=== PATIENT | male | born 1980 | race Caucasian/White ===

== ENCOUNTER 2019-11-30 16:36 | Emergency (ER) | payer BC, SELFPAY ==
[2019-11-30 16:50] VITALS: BMI 28.1
--- NOTE | 2019-11-30 16:50 | XR_ITS ---
PROCEDURE: XR TIBIA FIBULA LT 2V CLINICAL INDICATION: INJURY Posttraumatic pain COMPARISON: CR XR ANKLE LT MIN 3V from 11/30/2019 FINDINGS: There is an oblique nondisplaced fracture involving the distal shaft of the fibula. The fracture exits medially 2 cm above the ankle joint space. The ankle mortise appears preserved. No other significant anomalies are evident. IMPRESSION: Nondisplaced oblique fracture distal shaft of the fibula Dictated by: Navdeep Sparks MD 11/30/2019 20:30 Navdeep Sparks MD in [place] 11/30/2019 20:30
[2019-11-30 17:00] VITALS: BP 140/83; PULSE 90; RESP 22; TEMP 36.7; O2SAT 95; BMI 28.1
--- NOTE | 2019-11-30 17:05 | HMH.EDUTC ---
[facility] [place] Clinical Impression: Fracture, fibula Qualifiers: Encounter type: initial encounter Fibula location: shaft Fracture type: closed Fracture morphology: spiral Fracture alignment: nondisplaced Laterality: left Qualified Code(s): S82.445A - Nondisplaced spiral fracture of shaft of left fibula, initial encounter for closed fracture Disposition: Home, Self-Care Condition on Discharge: Good Instructions: How to Use Crutches, How To Perform RICE (Rest, Ice, Compress, Elevate), Fibula Shaft Fracture Additional Instructions: *RICE, Rest the extremity, Ice 15-20 minutes 3-4 times daily, Compress- wear the douglas wrap as discussed as much as possible to help reduce swelling and pain, Elevate the extremity when at rest *Douglas wrap/Orthoglass splint is for support and help control swelling, Be sure that is not to tight but not to loose either *Elevate when resting *Ibuprofen every 6-8 hours as needed for pain an inflammation. If need something more can take Tylenol in between doses of Ibuprofen to help Immediately follow up with your family doctor for new or worsening of symptoms, or no noticeable improvement over the next 3-5 days Call [facility]opedic [facility] on Monday for appointment Return if needed Straight to ER if any life threatening symptoms Referrals: PCP,No [Primary Care Provider] - Felicia Piedra MD [Physician] - As needed (Call on Monday for appointment) Time of Disposition: 17:30 Medical Decision Making - Erickson Inquiry Pt receiving controlled substance: No Erickson was queried for this patient: No Vital Signs: 11/30/19 17:00 Temperature 98.0 F Temperature Source Oral Pulse Rate [Right Brachial] 90 Respiratory Rate 22 Blood Pressure [Right Arm] 140/83 Blood Pressure Mean [Right Arm] 102 Blood Pressure Source [Right Arm] Automatic Cuff Blood Pressure Position [Right Arm] Sitting 02 Sat by Pulse Oximetry 95 Oxygen Delivery Method Room Air Orders (Tests/Meds): ORDERS Category Date Time Status Ankle XR - Left minimum 3 Views [XR ankle LT min 3V] Exams 11/30/19 16:50 Taken Stat XR tibia fibula LT 2V Stat Exams 11/30/19 16:50 Taken - Radiology Data #1 Image(s): Ankle Image Reviewed: Yes I reviewed the patient's radiology image Spiral fracture to the distal fib #2 Image(s): Tib/Fib Image Reviewed: Yes I reviewed the patient's radiology image Spiral fracture of left fib - Physician Consults Physician Consulted: Time: 17:15 Reason -: Orthopedic Eval/Care Comment/Response: Spoke with Dr Arevalo and he viewed xray and agreed, advised to place patient in posterior splint well padded RICE, crutches and call office on Monday for appointment [facility] [place] - General Stated complaint: AO 0905 1200 injured L ankle Time Seen by Provider: 11/30/19 17:05 Mode of Arrival: Ambulatory Source of Information: Patient Limitations: No Limitations Description of Symptoms (Recalled from Triage Doc. by RN): PATIENT STATES HE WAS ROLLERSKATING WHEN HE FELL, ROLLED HIS ANKLE, AND FELL ON IT TODAY HEENT Symptoms (Recalled from RN notes): No Resp Symptoms (Recalled from RN notes): No Skin Symptoms (Recalled from RN notes): No MS Symptoms (Recalled from RN notes): Yes Functional Status (Recalled from RN notes): WNL - History of Present Illness Provider Complaint: Patient states that he was trying to show his kids how to skate on skate board when he slipped and fell State that his left ankle rolled and he felt his leg twist and rolled on the ground Ever since he has been having pain in his left lower leg area just above the ankle - Related Data Home Medications Medication Instructions Recorded Confirmed citalopram 40 mg tablet 40 mg PO ONCE 06/08/17 11/30/19 lamotrigine 200 mg tablet 200 mg PO ONCE tab 06/08/17 11/30/19 buPROPion HCL [Wellbutrin SR 150mg 150 mg PO BID 11/30/19 11/30/19 Tablet] Allergies Allergy/AdvReac Type Severity Reaction Status Date / Time naproxen [
[2019-11-30 18:03] VITALS: BP 140/83; PULSE 90; RESP 22; TEMP 36.7; O2SAT 95
== END 2019-11-30 18:10 | disposition home or self-care (01) ==
PROVIDERS: Emergency Provider Nurse Practitioner
DX: S82.445A Nondisplaced spiral fracture of shaft of left fibula, initial encounter for closed fracture (principal); V00.131A Fall from skateboard, initial encounter; Y92.014 Private driveway to single-family (private) house as the place of occurrence of the external cause; F41.8 Other specified anxiety disorders; Z79.899 Other long term (current) drug therapy; F17.210 Nicotine dependence, cigarettes, uncomplicated; Z87.442 Personal history of urinary calculi; Z90.49 Acquired absence of other specified parts of digestive tract
CPT/HCPCS: 29515; 73590; 73610; 99203

== ENCOUNTER 2019-12-03 10:50 | Outpatient (RCR) | payer BC, SELFPAY | END 2019-12-03 11:10 | disposition home or self-care (01) | LOC: PT 10:50 | PROVIDERS: Visit Provider Orthopaedic Surgery | DX: S82.892A Other fracture of left lower leg, initial encounter for closed fracture (principal) | CPT/HCPCS: 97760 ==

== ENCOUNTER → 2019-12-12 13:07 | Outpatient (CLI) | payer BC, SELFPAY ==
--- NOTE | 2019-12-12 13:30 | XR_ITS ---
PROCEDURE: XR TIBIA FIBULA LT 2V CLINICAL INDICATION: fibula fx Follow-up fracture COMPARISON: CR XR TIBIA FIBULA LT 2V from 11/30/2019 FINDINGS: Nondisplaced oblique fracture involves the distal shaft of the fibula at the distal diaphyseal region proximal to the level of the ankle joint. Fracture line is visible and not significantly changed. IMPRESSION: No change nondisplaced oblique fracture distal shaft of the fibula Dictated by: Navdeep Sparks MD 12/12/2019 15:17 Navdeep Sparks MD in [place] 12/12/2019 15:17
[2019-12-12 13:41] LABS: Basophils % 0.2 % (0.1-2.0); Eosinophils % 0.2 % (0.1-12.0); Hematocrit 46.9 % (42.0-52.0); Hemoglobin 16.6 g/dL (14.1-18.0); Lymphocytes # 2.1 K/mm3 (0.7-4.5); Lymphocytes % 30.3 % (10-50); Mean Corpuscular HGB Conc 35.4 g/dL (31.8-35.4); Mean Corpuscular Hemoglobin 31.4 pg (27.0-31.2); Mean Corpuscular Volume 88.7 fl (80-94); Mean Platelet Volume 7.7 fl (7.4-10.4); Monocytes # 0.4 K/mm3 (0.1-1.0); Monocytes % 5.2 % (1.7-9.3); Neutrophils # 4.3 K/mm3 (1.8-7.8); Neutrophils % 64.1 % (37.0-80.0); Platelet Count 236 K/mm3 (142-424); Red Blood Count 5.29 M/mm3 (4.60-6.20); Red Cell Distribution Width 13.3 % (11.5-17.5); White Blood Count 6.8 K/mm3 (4.8-10.8)
[2019-12-12 15:04] LABS: Chloride 101 mmol/L (98-107); Potassium 4.1 mmoL/L (3.5-5.1); Sodium 139 mmol/L (136-145)
[2019-12-12 15:07] LABS: Alanine Aminotransferase 36 U/L (12-78); Albumin Level 4.4 g/dl (3.5-5.0); Albumin/Globulin Ratio 1.5 (1.1-1.8); Alkaline Phosphatase 87 U/L (38-126); Anion Gap 16.1 mEq/L (5-15); Aspartate Amino Transferase 31 U/L (17-59); Bilirubin,Total 1.1 mg/dl (0.2-1.3); Blood Urea Nitrogen 12 mg/dl (9-20); Calcium 9.8 mg/dl (8.4-10.2); Carbon Dioxide 26 mmol/L (22.0-30.0); Estimated Glomerular Filt Rate 67 ml/min (>60); GFR (African American) 81 ML/MIN (>60); Globulin 2.9 g/dL (1.3-3.2); Glucose 127 mg/dl (74-100); Total Protein,Serum 7.3 g/dl (6.3-8.2)
[2019-12-12 15:20] LABS: T4 (Thyroxine) 7.6 ug/dl (5.53-11.0)
[2019-12-12 15:35] LABS: Thyroid Stimulating Hormone 0.66 uIU/mL (0.465-4.68)
[2019-12-12 18:50] LABS: Vitamin B12 334 pg/mL (239-931)
[2019-12-12 18:51] LABS: Folate 5.62 ng/mL
== END ==
LOC: LAB 13:08 → RAD 13:25
PROVIDERS: Visit Provider Orthopaedic Surgery
DX: S82.892A Other fracture of left lower leg, initial encounter for closed fracture (principal)
CPT/HCPCS: 36415; 73590; 80053; 82306; 82607; 82746; 84436; 84443; 85025

== ENCOUNTER → 2019-12-16 11:01 | Outpatient (CLI) | payer BC, SELFPAY ==
[2019-12-16 12:12] LABS: Hemoglobin A1C 5.3 % (4.0-6.0)
[2019-12-16 17:47] LABS: Coronavirus 19 IgG Antibody Negative (Negative); Coronavirus 19 IgM Antibody Negative (Negative)
== END ==
PROVIDERS: Visit Provider Orthopaedic Surgery
DX: Z01.818 Encounter for other preprocedural examination (principal)
CPT/HCPCS: 36415; 83036; 86328

== ENCOUNTER 2019-12-17 10:43 | Day surgery (SDC) | payer BC, SELFPAY ==
[2019-12-13 15:20] VITALS: BMI 27.3
[2019-12-17] VITALS (12 sets, daily range): BP systolic 122–150; BP diastolic 63–112; PULSE 60–79; RESP 12–19; TEMP 36.2–43; O2SAT 96–98
--- NOTE | 2019-12-17 15:21 | XR_ITS ---
PROCEDURE: XR ANKLE LT 2V CLINICAL INDICATION: ORIF OF LT ANKLE COMPARISON: No exams were available for comparison FINDINGS: Fluoroscopy time: 2 minutes Multiple images submitted with the C-arm showing interval ORIF of the distal fibular fracture with placement of a lateral bone plate and multiple cortical screws with good alignment. 2 translucent fixators are such that placed in the distal tib fib region. The ankle mortise is preserved IMPRESSION: Status post ORIF distal fibular fracture with syndesmotic repair with good alignment Dictated by: Navdeep Sparks MD 12/17/2019 19:07 Navdeep Sparks MD in [place] 12/17/2019 19:07
--- NOTE | 2019-12-17 15:34 | HMH.OPNOTE ---
Date of procedure: 12/17/19 Pre-op Diagnosis:: L ankle fracture (distal fibula fracture; bimalleolar equivalent) Post-op Diagnosis:: L ankle fracture (distal fibula fracture; bimalleolar equivalent) Procedure performed:: open reduction internal fixation (ORIF) L ankle fracture (ORIF distal fibula with syndesmotic tightrope fixation) Surgeon:: Felicia Piedra MD Child Care Teacher(s):: Norman Topete MD GEOTHERMAL OPERATIONS ENGINEER:: Sergio Saldana Anesthesia: GETA, regional (popliteal block) Estimated blood loss (mL): 25 Clinical Note:: 39-year-old gentleman s/p injury on 11/30/2019 in which he fell 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 He twisted his ankle in the process and had immediate pain with inability to bear weight on the left leg, so presented to the [facility] [place] at [facility]. He was told there was a fracture in his ankle and placed into a splint. He saw me for follow-up 3 days later, but was too swollen to pursue surgical intervention at that time. He reports no numbness or tingling in the toes. No open wounds over the left ankle or foot. There is some mild bruising present. He has never injured this ankle previously, nor has he had any surgery on this foot or ankle. He is a smoker, denies any underlying medical comorbidities; BMI 28. Based on the significant medial-sided tenderness and what I believed what slight medial clear space widening, I recommended surgical fixation, especially given the patient's young age and high activity level. I discussed the risks of surgery with the patient, including but not limited to: bleeding, infection, wound healing complications, non-union, malunion, persistent pain despite surgery, post-traumatic arthritis, painful hardware, and need for further surgery in the future. I also emphasized his increased risk for adverse event or suboptimal healing/outcome given his status as a smoker, and I strongly encouraged smoking cessation. The patient does not report smoking often, mostly while drinking socially, and he can cut back after surgery. The patient was in agreement the plan for surgery, vocalized understanding of the risks of the procedure, and provided informed consent. Operative findings:: Vendor: Vatler -- fully-threaded cortical screws, 2.7mm x2 (interfragmentary fixation) -- lateral distal fibula plate, 11-hole left-sided plate -- 3.5mm screws in plate x7; 4 locking, 3 non-locking -- Synchfix syndesmosis tightrope x2 Operative note:: The patient was identified in preoperative holding and the L ankle signed by myself. Surgical consent was verified with the patient and all questions answered. He was then seen by anesthesia and popliteal nerve block performed in preoperative holding. The patient was then taken to the operating room and placed supine on the OR table. 2g cefazolin was infused intravenously and general anesthesia induced. Once the patient was asleep, the splint was removed from the L ankle and soft tissues appeared amenable to fixation. Some ecchymosis remained laterally on the heel, but no blistering or open wounds present. Nonsterile tourniquet was placed on the L thigh and the L lower leg and ankle were prepped and draped in the usual sterile fashion with the lower leg supported on a radiolucent bolster (bone foam). Timeout was performed, identifying the correct patient, correct procedure, and correct site. The procedure was begun by using the Esmarch to exsanguinate the L lower extremity and elevating the tourniquet to 250 mmHg. C-arm was used to localize the fracture site over the distal fibula. Longitudinal incision was made over the lateral aspect of the ankle, centered over the fibula and extending from the tip of the fibula to around 8 cm proximally. After the skin was incised, subcutaneous tissue was spread bluntly with Metzenbaum scissors until muscle/fascial layer encountered. A new, inside knife was used to cut down directly onto the fibula and periosteum was lifted anteriorl
--- NOTE | 2019-12-17 15:56 | P.PN_ITS ---
[facility] Anesthesia Checklist - Patient Identification Patient Identification: Arm Band, Verbal (Name & ) - Structural Data Admitted From: Home Planned Operative Procedure/s: Left ankle ORIF Consent for Planned Operative Procedure(s) Verified: Yes Verified Documents: Surgical Consent, History and Physical - NPO Status Verified Time NPO: 22:00 - Chart Verification Results Verified: CBC, BMP - Additional verifications Anesthesia Reactions: Yes (PONV) Hx Blood Transfusions: No Blood Transfusion Reaction: No - Airway Assessment C-Spine Mobility Assessed: Yes (Facial hair, MP 2, TMD 3) TMJ Mobility Assessed: Yes Dentition: Good Dentition - Neurological Assessment Level of Consciousness: Awake, Alert, Appropriate, Follows Commands Hx Seizures: No Numbness or tingling in extremities: No - Anesthesia Plan Anesthesia Risk discussed: Yes Anesthesia Plan: Verified ASA Class: II Anesthesia Type: General w/block [facility] History I have reviewed the patient's past medical history: Yes Medical History: Reports:: Anxiety, Depression, Kidney Stones Denies:: Cancer, Diabetes Mellitus Type 1, Diabetes Mellitus Type 2, Hypertension, Internal Pacemaker, MRSA, Seizures *Have you ever received a pneumonia vaccine?: No *Have you received a flu vaccine this season?: No Other Medical History: Reports: Other. Denies: Blood Transfusion Reaction Anesthesia experience/problems:: PONV Other Surgeries: Yes: Cholecystectomy, Hernia Repair, Other. No: Pacemaker Amputation: No Fractures: No - *Social History Tobacco Type: smokeless tobacco # Packs/Day (cigarettes): 1 Alcohol Intake Frequency:: 0-2 drinks per day Substance Use Type: denies use *Occupational Status:: other Housing: house Household Members: family *Travel in the last 8 weeks: None Family Hx:: No significant family history
--- NOTE | 2019-12-17 15:58 | P.PN_ITS ---
[facility] [place] Anesthesia Record Part I Intake, IV Amount: 1,300 Estimated blood loss (mL): 25 Urine output (mL): 0 (NM) Blood Products used (#): none Blood Pressure: 146/112 SaO2: 96 Pulse Rate: 79 Respiratory Rate: 19 Temperature: 97.2 F Patient is:: Awake, Stable Stable to PACU at:: 15:50
--- NOTE | 2019-12-17 18:15 | HMH.ANESII ---
[facility] [place] Anesthesia Record Part II Discharge Time: 16:31 Destination: Surgical Day Care (OP Surgery) PACU nurse assessment reviewed?: Yes Patient Condition:: Good Anesthesia Complications:: None Swallowing reflex intact?: Yes Cyanosis?: No Blood Pressure: 122/63 Pulse Rate: 67 Temperature: 97.5 F Mental Status: Alert & Oriented Pain level:: 0 Nausea and/or vomitting:: None Intake, IV Amount: 0 (Normovolemic)
== END 2019-12-17 17:04 | disposition home or self-care (01) ==
LOC: OR 10:44
PROVIDERS: Visit Provider Orthopaedic Surgery
PROC: (CPT 27814; principal; 2019-12-17 12:30)
DX: S82.842A Displaced bimalleolar fracture of left lower leg, initial encounter for closed fracture (principal); V00.131A Fall from skateboard, initial encounter
CPT/HCPCS: 27814; 73600; 76000; 96374; C1713; C1776; J2405

== ENCOUNTER → 2019-12-26 12:26 | Outpatient (CLI) | payer BC, SELFPAY ==
--- NOTE | 2019-12-26 12:31 | XR_ITS ---
PROCEDURE: XR ANKLE LT MIN 3V Referring Doctor: Felicia Piedra Patient Age:39Y CLINICAL INDICATION: s/p ORIF left ankle; out of splint; NWB COMPARISON: CR XR TIBIA FIBULA LT 2V from 12/12/2019 XA XR ANKLE LT 2V from 12/17/2019 FINDINGS: There has been ORIF of the fracture involving oblique distal shaft of fibula. On today's study there is a long metallic plate applied to the lateral aspect of the distal fibula shaft which continues to the lateral malleolus. It is secured by multiple screws at least 7 screws but a 2 screws enter slightly different oblique projection to secure the fracture as well but A 2 faint horizontal tracks are seen through the distal tibia and fibula and reflect a additional device on with fixation elements at along the medial aspect of distal tibia. This additional feature also further secures the metallic plate applied laterally at fibula as well as supports the interosseous relationships distal tibia/fibula. The ankle mortise is intact. Dome of talus intact satisfactory relationships about the ankle. Soft tissue swelling about the ankle most evident laterally. IMPRESSION: ORIF distal fibular fracture.. Good position of fracture and fixation elements i Posterior splint removed for today's study Dictated by: Cristóbal Phillips MD 12/30/2019 11:01 Cristóbal Phillips MD in [place] 12/30/2019 11:01
== END ==
PROVIDERS: Visit Provider Orthopaedic Surgery
DX: S82.892A Other fracture of left lower leg, initial encounter for closed fracture (principal)
CPT/HCPCS: 73610

== ENCOUNTER 2019-12-31 09:35 | Emergency (ER) | payer BC, SELFPAY ==
[2019-12-31 10:10] VITALS: BP 128/80; PULSE 82; RESP 19; TEMP 36.6; O2SAT 99; BMI 26.6
--- NOTE | 2019-12-31 10:19 | HMH.EDUTC ---
[facility] [place] Disposition Clinical Impression: Exposure to COVID-19 virus Disposition: Home, Self-Care Condition on Discharge: Good Instructions: Preventing the Spread of Coronavirus Discharge Instructions Additional Instructions: Drink plenty of fluids. Take tylenol for pain or fever. Follow up with your regular doctor. GO TO THE ER FOR ANY WORSENING SYMPTOMS FOLLOW THE DIRECTIONS ON THE COVID-19 HAND OUT THAT WE GAVE YOU REGARDING SELF-ISOLATION UNTIL YOU KNOW YOUR COVID-19 RESULTS Referrals: PCP,No [Primary Care Provider] - Time of Disposition: 10:20 Medical Decision Making - Medical Records Medical records reviewed: No: I reviewed the patient's medical records. - Erickson Inquiry Pt receiving controlled substance: No Vital Signs: 12/31/19 10:10 12/31/19 10:23 Temperature 97.8 F 97.8 F Temperature Source Oral Pulse Rate 82 Pulse Rate [Right Brachial] 82 Respiratory Rate 19 19 Blood Pressure 128/80 Blood Pressure [Right Arm] 128/80 Blood Pressure Mean [Right Arm] 96 Blood Pressure Source [Right Arm] Automatic Cuff Blood Pressure Position [Right Arm] Sitting 02 Sat by Pulse Oximetry 99 Oxygen Delivery Method Room Air [facility] [place] HPI - General Stated complaint: exposed to covid Time Seen by Provider: 12/31/19 10:15 Mode of Arrival: Ambulatory Source of Information: Patient Limitations: No Limitations Description of Symptoms (Recalled from Triage Doc. by RN): PATIENT REQUESTING COVID TEST. HIS DAUGHTER TESTED POSITIVE YESTERDAY. PATIENT DENIES SYMPTOMS HEENT Symptoms (Recalled from RN notes): No Resp Symptoms (Recalled from RN notes): No Skin Symptoms (Recalled from RN notes): No MS Symptoms (Recalled from RN notes): No Functional Status (Recalled from RN notes): WNL - History of Present Illness Provider Complaint: His daughter tested positive for COVID-19 yesterday. He denies any symptoms himself. - Related Data Home Medications Medication Instructions Recorded Confirmed citalopram 40 mg tablet 40 mg PO ONCE 06/08/17 12/26/19 lamotrigine 200 mg tablet 200 mg PO ONCE tab 06/08/17 12/26/19 buPROPion HCL [Wellbutrin SR 150mg 100 mg PO DAILY 11/30/19 12/26/19 Tablet] Previous Rx's Medication Instructions Recorded hydrocodone 5 mg-acetaminophen 325 1 tab PO Q8H PRN #20 tab 12/06/19 mg tablet Allergies Allergy/AdvReac Type Severity Reaction Status Date / Time naproxen [From Aleve] Allergy Severe Anaphylaxis Verified 12/26/19 13:16 - Worker's Comp Is this a Worker's Comp case?: No [facility] History - Hepatitis A Screen Drug use history?: No High risk sexual behaviors?: No History of sexually transmitted infection?: No Currently employed?: No Childcare worker?: No Do you have indoor plumbing?: Yes Do you have electricity?: Yes Attestation statement:: This patient has been screened for Hepatitis A risk factors. I have reviewed the patient's past medical history: Yes Medical History: Reports:: Anxiety, Depression, Kidney Stones Denies:: Cancer, Diabetes Mellitus Type 1, Diabetes Mellitus Type 2, Hypertension, Internal Pacemaker, MRSA, Seizures Other Medical History: Reports: Other. Denies: Blood Transfusion Reaction Other Surgeries: Yes: Cholecystectomy, Hernia Repair, Other. No: Pacemaker Amputation: No Fractures: No - Social History Smoking Status: Current every day smoker Tobacco Type: cigarettes # Packs/Day (cigarettes): 1 Alcohol Intake: never Alcohol Intake Frequency:: 0-2 drinks per day Substance Use Type: denies use Occupational Status: other Housing: house Household Members: family - Psychiatric History Pschychiatric History:: Reports:: Anxiety, Depression Family Hx:: No significant family history ROS Obtained: Yes All systems reviewed & no additional complaints - Constitutional Constitutional: Denies chills, Denies fever(s) - Eyes Eyes: Denies eye discharge, Denies itchy eyes - ENT Ears, Nose, Mouth, and Throat: Denies
[2019-12-31 10:23] VITALS: BP 128/80; PULSE 82; RESP 19; TEMP 36.6; O2SAT 99
== END 2019-12-31 10:26 | disposition home or self-care (01) ==
PROVIDERS: Emergency Provider Nurse Practitioner Family
DX: Z20.828 Contact with and (suspected) exposure to other viral communicable diseases (principal); F41.8 Other specified anxiety disorders; Z87.442 Personal history of urinary calculi; Z90.49 Acquired absence of other specified parts of digestive tract; F17.210 Nicotine dependence, cigarettes, uncomplicated
CPT/HCPCS: 99201; U0003

== ENCOUNTER → 2020-01-23 10:12 | Outpatient (CLI) | payer BC, SELFPAY ==
--- NOTE | 2020-01-23 10:15 | XR_ITS ---
PROCEDURE: XR ANKLE LT MIN 3V CLINICAL INDICATION: LEft ankle fracture; dos=12/17/19 Follow-up fracture/ORIF COMPARISON: CR XR ANKLE LT MIN 3V from 11/30/2019 DX XR ANKLE LT MIN 3V from 12/26/2019 FINDINGS: There is a lateral bone plate at the distal fibula with multiple cortical screws. Translucent fixators are present at the tib fib 4 synchondrosis repair. Oblique distal fibular fracture once again noted nondisplaced with good alignment. IMPRESSION: Good alignment status post ORIF distal fibular fracture not significantly changed Dictated by: Navdeep Sparks MD 01/23/2020 13:33 Navdeep Sparks MD in [place] 01/23/2020 13:33
== END ==
PROVIDERS: Visit Provider Orthopaedic Surgery
DX: S82.409A Unspecified fracture of shaft of unspecified fibula, initial encounter for closed fracture (principal); S82.899A Other fracture of unspecified lower leg, initial encounter for closed fracture
CPT/HCPCS: 73610

== ENCOUNTER 2020-01-23 11:15 | Outpatient (RCR) | payer BC, SELFPAY | END 2020-01-23 12:00 | disposition home or self-care (01) | LOC: PT 11:15 | PROVIDERS: Visit Provider Orthopaedic Surgery | DX: S82.402A Unspecified fracture of shaft of left fibula, initial encounter for closed fracture (principal); S82.892A Other fracture of left lower leg, initial encounter for closed fracture | CPT/HCPCS: 97760 ==

== ENCOUNTER → 2020-02-19 09:06 | Outpatient (CLI) | payer BC, SELFPAY ==
--- NOTE | 2020-02-19 09:12 | XR_ITS ---
PROCEDURE: XR ANKLE LT MIN 3V CLINICAL INDICATION: s/p ORIF L ankle Follow-up ORIF COMPARISON: CR XR ANKLE LT MIN 3V from 11/30/2019 DX XR ANKLE LT MIN 3V from 12/26/2019 CR XR ANKLE LT MIN 3V from 01/23/2020 FINDINGS: Good alignment status post ORIF distal tib fib with lateral fibular bone plate and translucent fixator at the tib fib region. The oblique distal fibular fracture is less apparent. IMPRESSION: Healing distal fibular fracture status post ORIF Dictated by: Navdeep Sparks MD 02/19/2020 12:59 Navdeep Sparks MD in [place] 02/19/2020 12:59
== END ==
PROVIDERS: Visit Provider Orthopaedic Surgery
DX: S82.892A Other fracture of left lower leg, initial encounter for closed fracture (principal)
CPT/HCPCS: 73610

== ENCOUNTER 2020-03-16 17:30 | Outpatient (RCR) | payer BC, SELFPAY ==
--- NOTE | 2020-02-04 08:40 | HMH.PTOPEV ---
PT Outpatient Evaluation Rehab PT Outpatient Evaluation Start: 02/04/20 08:16 Freq: Status: Active Protocol: Document 02/04/20 08:16 BROOKECHRIS (Rec: 02/04/20 08:40 MARILYNN [id number]) Electronically Signed By William Leon PT 02/04/20 08:16 Outpatient Therapy Subjective History Subjective History This is the initial Physical Therapy evaluation for Grant Ward. Pt is a 39 y/o male referred to PT s/p L ankle ORIF. Pt reports day weekend he was playing with his kids and fell. Pt reports he was diagnosed w/ fibular fx and a torn ligament . Pt reports he had ORIF and tendon repain done ~ 7 weeks ago and is now referred to PT. Chief Complaint Pain,Stiff Symptom Type Sharp Symptoms Relieved By Rest/Positioning Symptoms Aggravated By Physical Activity Prior Functional Limitations None Current Functional Limitations Recreation Activity Symptom Description Intermittent Level of pain today (0-10) 0 Pain scale - at its best (0-10) 0 Pain scale - at its worst (0-10) 4 Ankle/Foot Eval Gait Observation General Gait Pattern Observation No Deviations/Normal Assistive Device Ambulation Assistive Device None Palpation Tenderness left Ankle/Foot Palpation Findings None/Normal ROM right Ankle/Foot Dorsiflexion w/Knee Extended 10 Active Range Motion (degrees) Ankle/Foot Plantar Flexion Active Range wfl of Motion (degrees) Ankle/Foot Eversion Active Range of 30 Motion (degrees) Ankle/Foot Inversion Active Range of 40 Motion (degrees) left Ankle/Foot Dorsiflexion w/Knee Extended 0 Active Range Motion (degrees) Ankle/Foot Plantar Flexion Active Range wfl of Motion (degrees) Ankle/Foot Eversion Active Range of 20 Motion (degrees) Ankle/Foot Inversion Active Range of 30 Motion (degrees) Ankle/Foot ROM Limitations Soft Tissue Tightness,Pain MMT Ankle Dorsiflexion Strength Grade 4 Good Ankle Plantarflexion Strength Grade 4 Good Foot Eversion Strength Grade 4- Good- Foot Inversion Strength Grade 4- Good- Special Tests Ankle Eversion Test Positive Left Ankle Inversion (supination) Test Positive Left Outpatient Therapy Assessment Impairments Problems/Impairmments Palpation Tenderness,Impaired Range of Motion,Impaired Strength,Impaired Lifting, Impai
== END 2020-03-16 17:35 | disposition home or self-care (01) ==
LOC: PT 17:30
PROVIDERS: Visit Provider Orthopaedic Surgery
DX: S82.892D Other fracture of left lower leg, subsequent encounter for closed fracture with routine healing (principal)
CPT/HCPCS: 97033; 97035; 97110; 97140; 97163; 97164

== ENCOUNTER → 2020-03-17 08:43 | Outpatient (CLI) | payer BC, SELFPAY ==
--- NOTE | 2020-03-17 08:46 | XR_ITS ---
PROCEDURE: XR ANKLE WT BEARING LT MIN 3V CLINICAL INDICATION: s/p ORIF L ankle Follow-up surgery COMPARISON: CR XR ANKLE LT MIN 3V from 11/30/2019 DX XR ANKLE LT MIN 3V from 12/26/2019 CR XR ANKLE LT MIN 3V from 01/23/2020 CR XR ANKLE LT MIN 3V from 02/19/2020 FINDINGS: Good alignment status post ORIF distal tib fib. Callus formation noted at the distal fibular fracture. Ankle mortise is preserved IMPRESSION: Good alignment status post ORIF distal tib fib fracture Dictated by: Navdeep Sparks MD 03/17/2020 16:37 Navdeep Sparks MD in [place] 03/17/2020 16:37
== END ==
PROVIDERS: Visit Provider Orthopaedic Surgery
DX: S82.892A Other fracture of left lower leg, initial encounter for closed fracture (principal)
CPT/HCPCS: 73610

== ENCOUNTER 2020-03-30 09:51 | Emergency (ER) | payer BC, SELFPAY ==
[2020-03-30 09:55] VITALS: BP 128/85; PULSE 68; RESP 19; TEMP 37; O2SAT 96; BMI 27.3
--- NOTE | 2020-03-30 10:26 | HMH.EDUTC ---
[facility] [place] Impression: Viral upper respiratory infection, Encounter for laboratory testing for COVID-19 virus Disposition: Home, Self-Care Condition on Discharge: Good Instructions: DI for Viral Upper Respiratory Infection -- Adult, Coronavirus Disease 2019, DI for COVID-19 (Suspected or Confirmed ), Preventing the Spread of Coronavirus Discharge Instructions Additional Instructions: *Monitor Temp, Over the counter Motrin or Tylenol as directed/as needed Tylenol every 4 hours and Motrin every 6 hours (as long as your family doctor has told you that you can take it) for fever or pain. and straight to ER if unable to lower temp less than 101.0 after medication given *Warm salt water gargles may help to soothe the throat *Throat Lozenges *Warm fluids like tea with honey may help to soothe the throat *Sleep elevated *Humidifier/Vaporizer Your throat swab was sent for culture. Those results are typically sent to your primary care. Be sure to follow up in 2-3 days with your family doctor/primary care physician if no improvement so they can review those result and treat if necessary. If you don?t have a primary care doctor, I recommend you get one but in the mean time, you will have to return to a walk in clinic Follow up IMMEDIATELY for new or worsening symptoms or no Noticeable improvement over the next 48-72 hours. 911 for difficulty breathing or swallowing You were tested for today for COVID19 your test result should be back in the next 24-48 hours, you may call to the [facility] to see if your test results are back in the next 48 hours [phone] [facility] hours are 9am-9pm You was given a handout with instructions for Self Quarantine and Self isolation for while you wait on test results and what to do if they are positive If you are positive the Health Dept will be contacting you also Referrals: PCP,No [Primary Care Provider] - Forms: Work/School Release Time of Disposition: 10:29 Medical Decision Making - Erickson Inquiry Pt receiving controlled substance: No Erickson was queried for this patient: No Vital Signs: 03/30/20 09:55 Temperature 98.6 F Temperature Source Oral Pulse Rate [Right Brachial] 68 Respiratory Rate 19 Blood Pressure [Right Arm] 128/85 Blood Pressure Mean [Right Arm] 99 Blood Pressure Source [Right Arm] Automatic Cuff Blood Pressure Position [Right Arm] Sitting 02 Sat by Pulse Oximetry 96 Oxygen Delivery Method Room Air - Lab Data Lab results reviewed: Yes: I reviewed the patient's lab results. Orders (Tests/Meds): ORDERS Category Date Time Status Covid-19 Nasal PCR ([facility]) Routine Lab 03/30/20 10:06 Ordered [facility] [place] - General Stated complaint: covid symptoms Time Seen by Provider: 03/30/20 10:26 Mode of Arrival: Ambulatory Source of Information: Patient Limitations: No Limitations Description of Symptoms (Recalled from Triage Doc. by RN): PATIENT REQUESTING COVID TEST; C/O SORE THROAT, COUGH, SOA, DIARRHEA, HEADACHE, AND FEVER X 2 DAYS HEENT Symptoms (Recalled from RN notes): No Resp Symptoms (Recalled from RN notes): No Skin Symptoms (Recalled from RN notes): No MS Symptoms (Recalled from RN notes): No Functional Status (Recalled from RN notes): WNL - History of Present Illness Provider Complaint: Patient state that he came in to get COVID test states that he has not felt well for the last couple of days State that he has been having cough, sore throat, fever, chills body achesa and at times feels like he cannot get a deep breath State that he has not been exposed to COVID that he is aware of but wanted to get tested - Related Data Home Medications Medication Instructions Recorded Confirmed citalopram 40 mg tablet 40 mg PO ONCE 06/08/17 03/30/20 lamotrigine 200 mg tablet 200 mg PO ONCE tab 06/08/17 03/30/20 Allergies Allergy/AdvReac Type Severity Reaction Status Date / Time naproxen [From Aleve] Allergy Severe Anaphylaxis Verified 03/17/20 09:41
[2020-03-30 10:32] VITALS: BP 128/85; PULSE 68; RESP 19; TEMP 37; O2SAT 96
--- NOTE | 2020-03-30 15:31 | PC.NURSE ---
pt notified of positive covid result
[2020-03-30 20:55] LABS: UTC Influenza A Antigen Negative (Negative); UTC Influenza B Antigen Negative (Negative); UTC Strep Screen (Rapid) Negative (Negative)
== END 2020-03-30 10:35 | disposition home or self-care (01) ==
PROVIDERS: Emergency Provider Nurse Practitioner
DX: U07.1 COVID-19 (principal); F41.8 Other specified anxiety disorders; Z87.442 Personal history of urinary calculi; F17.210 Nicotine dependence, cigarettes, uncomplicated; Z79.899 Other long term (current) drug therapy
CPT/HCPCS: 87804; 87880; 99202; G0463; U0003

== ENCOUNTER → 2020-05-01 07:57 | Outpatient (CLI) | payer BC, SELFPAY ==
--- NOTE | 2020-05-01 08:05 | XR_ITS ---
PROCEDURE: XR ANKLE WT BEARING LT MIN 3V CLINICAL INDICATION: s/p ORIF L ankle Follow-up fracture COMPARISON: CR XR ANKLE LT MIN 3V from 11/30/2019 DX XR ANKLE LT MIN 3V from 12/26/2019 CR XR ANKLE LT MIN 3V from 01/23/2020 CR XR ANKLE LT MIN 3V from 02/19/2020 CR XR ANKLE WT BEARING LT MIN 3V from 03/17/2020 FINDINGS: Status post ORIF with lateral bone plate and translucent synchondrosis fixators in place. Good alignment. The mortise is preserved. There is a small calcific density along the anterior distal tibia and could be due to small spur versus an old avulsion fracture. IMPRESSION: Good alignment status post ORIF distal tib fib Dictated by: Navdeep Sparks MD 05/01/2020 09:06 Navdeep Sparks MD in [place] 05/01/2020 09:06
== END ==
PROVIDERS: Visit Provider Orthopaedic Surgery
DX: S82.402A Unspecified fracture of shaft of left fibula, initial encounter for closed fracture (principal); S82.892A Other fracture of left lower leg, initial encounter for closed fracture
CPT/HCPCS: 73610

== ENCOUNTER → 2020-07-07 15:03 | Outpatient (CLI) | payer BC, SELFPAY ==
[2020-07-07 15:23] LABS: Basophils # 0.1 K/mm3 (0-0.2); Eosinophils # 0.1 K/mm3 (0.0-0.4); Eosinophils % 1.1 % (0.1-12.0); Hematocrit 49.7 % (42.0-52.0); Hemoglobin 17.2 g/dL (14.1-18.0); Lymphocytes # 2.2 K/mm3 (0.7-4.5); Mean Corpuscular HGB Conc 34.5 g/dL (31.8-35.4); Mean Corpuscular Hemoglobin 30.5 pg (27.0-31.2); Mean Corpuscular Volume 88.3 fl (80-94); Mean Platelet Volume 8.1 fl (7.4-10.4); Monocytes # 0.5 K/mm3 (0.1-1.0); Monocytes % 5.6 % (1.7-9.3); Neutrophils # 5.8 K/mm3 (1.8-7.8); Neutrophils % 67.4 % (37.0-80.0); Platelet Count 258 K/mm3 (142-424); Red Blood Count 5.63 M/mm3 (4.60-6.20); Red Cell Distribution Width 13.4 % (11.5-17.5); White Blood Count 8.6 K/mm3 (4.8-10.8)
--- NOTE | 2020-07-07 15:31 | XR_ITS ---
PROCEDURE: XR ACUTE ABDOMEN SERIES CLINICAL INDICATION: RLQ ABD PAIN, DIARRHEA Right lower quadrant pain with diarrhea COMPARISON: CT ABDPELWO CT abdomen pelvis wo con from 10/04/2017 FINDINGS: Frontal view of the chest shows no acute finding. Upright and supine views of the abdomen demonstrates a nonspecific bowel gas pattern. There are few air-fluid levels within nondistended large bowel which may be seen with diarrhea disease No evidence of intestinal obstruction or free air. Minimal lumbar curvature convex right. Other findings:A 4 mm opacity is present to the right of the L3 transverse process and may correspond to a peritoneal calcification as noted on an older CT scan in the right mid abdominal region. IMPRESSION: There are few scattered air-fluid levels in the large bowel which may be seen with colitis/diarrhea disease. Dictated by: Navdeep Sparks MD 07/07/2020 15:55 Navdeep Sparks MD in [place] 07/07/2020 15:55
[2020-07-07 15:32] LABS: Chloride 103 mmol/L (98-107)
[2020-07-07 15:33] LABS: Potassium 4.1 mmoL/L (3.5-5.1); Sodium 138 mmol/L (136-145)
[2020-07-07 15:36] LABS: Anion Gap 14.1 mEq/L (5-15); Blood Urea Nitrogen 12 mg/dl (9-20); Calcium 9.5 mg/dl (8.4-10.2); Carbon Dioxide 25 mmol/L (22.0-30.0); Estimated Glomerular Filt Rate 74 ml/min (>60); GFR (African American) 89 ML/MIN (>60); Glucose 109 mg/dl (74-100)
== END ==
LOC: LAB 15:04
PROVIDERS: Visit Provider Internal Medicine
DX: R10.31 Right lower quadrant pain (principal); R19.7 Diarrhea, unspecified
CPT/HCPCS: 36415; 74021; 80048; 85025

== ENCOUNTER 2020-09-22 09:48 | Emergency (ER) | payer BC, SELFPAY ==
[2020-09-22 09:50] VITALS: BP 131/76; PULSE 77; RESP 18; TEMP 37.1; O2SAT 97; BMI 27.3
[2020-09-22 10:25] LABS: UTC Strep Screen (Rapid) Positive (Negative)
--- NOTE | 2020-09-22 10:26 | HMH.EDUTC ---
[facility] [place] Dis[place] Clinical Impression: Strep pharyngitis Disposition: Home, Self-Care Condition on Discharge: Good Instructions: DI for Strep Throat Additional Instructions: Drink plenty of fluids. Take tylenol or ibuprofen for pain or fever. Take the medications as directed. Follow up with your regular doctor. GO TO THE ER FOR ANY WORSENING SYMPTOMS Throw your tooth brush away and get a new one. Prescriptions: Ondansetron [Zofran 4mg ODT] 4 mg PO Q8HP PRN #12 tab.rapdis PRN Reason: Nausea Transmission Status: Received by [facility] Amoxicillin [Amoxicillin 500mg Tab] 500 mg PO TID 10 Days #30 tab Transmission Status: Received by [facility] predniSONE [Deltasone 10mg tablet] 10 mg PO BID 3 Days #6 tab Transmission Status: Received by [facility] Referrals: Tonio Hull [Primary Care Provider] - Forms: Work/School Release Time of Disposition: 10:28 Medical Decision Making - Medical Records Medical records reviewed: No: I reviewed the patient's medical records. - Erickson Inquiry Pt receiving controlled substance: No Vital Signs: 09/22/20 09:50 09/22/20 10:31 Temperature 98.7 F 98.7 F Temperature Source Oral Pulse Rate 77 Pulse Rate [Right Brachial] 77 Respiratory Rate 18 18 Blood Pressure 131/76 Blood Pressure [Right Arm] 131/76 Blood Pressure Mean [Right Arm] 94 Blood Pressure Source [Right Arm] Automatic Cuff Blood Pressure Position [Right Arm] Sitting 02 Sat by Pulse Oximetry 97 Oxygen Delivery Method Room Air - Lab Data Lab results reviewed: Yes: I reviewed the patient's lab results. Lab Results 09/22/20 10:13: Strep Scn Rapid Clinic Positive A [facility] [place] HPI - General Stated complaint: Sore throat, headache and body aches Time Seen by Provider: 09/22/20 10:26 Mode of Arrival: Ambulatory Source of Information: Patient Limitations: No Limitations Description of Symptoms (Recalled from Triage Doc. by RN): PATIENT C/O SORE THROAT, HEADACHE, BODY ACHES, AND EAR ACHE SINCE MONDAY NIGHT HEENT Symptoms (Recalled from RN notes): Yes Resp Symptoms (Recalled from RN notes): No Skin Symptoms (Recalled from RN notes): No MS Symptoms (Recalled from RN notes): No Functional Status (Recalled from RN notes): WNL - History of Present Illness Provider Complaint: He c/o sore throat for the past 1 day. He has had chills and diarrhea also. - Related Data Home Medications Medication Instructions Recorded Confirmed citalopram 40 mg tablet 40 mg PO ONCE 06/08/17 05/01/20 lamotrigine 200 mg tablet 200 mg PO ONCE tab 06/08/17 05/01/20 Previous Rx's Medication Instructions Recorded Amoxicillin [Amoxicillin 500mg Tab] 500 mg PO TID 10 Days #30 tab 09/22/20 Ondansetron [Zofran 4mg ODT] 4 mg PO Q8HP PRN #12 tab.rapdis 09/22/20 predniSONE [Deltasone 10mg tablet] 10 mg PO BID 3 Days #6 tab 09/22/20 Allergies Allergy/AdvReac Type Severity Reaction Status Date / Time naproxen [From Aleve] Allergy Severe Anaphylaxis Verified 05/01/20 08:33 - Worker's Comp Is this a Worker's Comp case?: No [facility] History - Hepatitis A Screen Drug use history?: No High risk sexual behaviors?: No History of sexually transmitted infection?: No Currently employed?: No Childcare worker?: No Do you have indoor plumbing?: Yes Do you have electricity?: Yes Attestation statement:: This patient has been screened for Hepatitis A risk factors. I have reviewed the patient's past medical history: Yes Medical History: Reports:: Anxiety, Depression, Kidney Stones Denies:: Cancer, Diabetes Mellitus Type 1, Diabetes Mellitus Type 2, Hypertension, Internal Pacemaker, MRSA, Seizures Other Medical History: Reports: Other. Denies: Blood Transfusion Reaction Laterality Cases: Left: Other Other Surgeries: Yes: Cholecystectomy, Hernia Repair, Other. No: Pacemaker Amputation: No Fractures: Yes (LT ankle) - Social History Smoking Status: Never smoker
[2020-09-22 10:31] VITALS: BP 131/76; PULSE 77; RESP 18; TEMP 37.1; O2SAT 97
== END 2020-09-22 10:34 | disposition home or self-care (01) ==
PROVIDERS: Emergency Provider Nurse Practitioner Family; PCP Internal Medicine
DX: J02.0 Streptococcal pharyngitis (principal); F41.8 Other specified anxiety disorders; Z87.442 Personal history of urinary calculi
CPT/HCPCS: 87880; 99202; G0463

== ENCOUNTER 2021-02-04 11:50 | Emergency (ER) | payer BC, SELFPAY ==
[2021-02-04 13:24] VITALS: BP 148/100; PULSE 78; RESP 14; TEMP 36.8; O2SAT 98; BMI 27.3
--- NOTE | 2021-02-04 13:24 | HMH.EDUTC ---
[facility] [place] Clinical Impression: Medication side effects Nausea & vomiting Qualifiers: Vomiting type: unspecified Vomiting Intractability: non-intractable Qualified Code(s): R11.2 - Nausea with vomiting, unspecified Disposition: Home, Self-Care Condition on Discharge: Good Instructions: DI for Nausea -- Adult, Nausea and Vomiting-Adult Additional Instructions: Drink plenty of fluids. Take the zofran for nausea/vomiting. Return and go to the er if you continue to have these symptoms. Follow up with your regular doctor. Discuss your symptoms with your provider. GO TO THE ER FOR ANY WORSENING SYMPTOMS Prescriptions: Ondansetron [Zofran 4mg ODT] 4 mg PO Q8HP PRN #20 tab PRN Reason: Nausea Transmission Status: Received by [facility] Referrals: Provider,Referral, [Primary Care Provider] - Time of Disposition: 14:54 Medical Decision Making - Medical Records Medical records reviewed: No: I reviewed the patient's medical records. - Erickson Inquiry Pt receiving controlled substance: No Vital Signs: 02/04/21 13:24 02/04/21 14:53 Temperature 98.2 F 98.2 F Temperature Source Oral Pulse Rate 59 L Pulse Rate [Left] 78 Respiratory Rate 14 14 Blood Pressure 150/96 H Blood Pressure [Right Arm] 148/100 H Blood Pressure Mean [Right Arm] 116 02 Sat by Pulse Oximetry 98 [facility] [place] - General Stated complaint: medicine change, affecting bp Time Seen by Provider: 02/04/21 13:24 - History of Present Illness Provider Complaint: He states that for the past 5 days approx. he has had spells that he felt like he is having a hot flash and he starts vomiting. Then he feels pretty much normal again until he starts having the hot flash again, then he will get nauseated and vomit again. He denies any abdominal pain or other symptoms. He has felt fatigued more than normal for the past several days too. He states that he was weaned off celexa over the past 2 weeks. His last dose was on Monday (3 days ago). A medicaton was started in its place about 2 weeks go too. The new one was titrated up while he weaned off the celexa. He states that he has felt fine until he has his first episode last Monday. He does not think his symptoms are related to his medication change. He denies any fever/chills, cough, congestion, Gi symptoms (other than the vomiting during these episodes). He states he feels fine in between the symptoms. He is having several of these episodes a day. His last one was this morning. - Related Data Home Medications Medication Instructions Recorded Confirmed citalopram 40 mg tablet 40 mg PO ONCE 06/08/17 05/01/20 lamotrigine 200 mg tablet 200 mg PO ONCE tab 06/08/17 05/01/20 Previous Rx's Medication Instructions Recorded Amoxicillin [Amoxicillin 500mg Tab] 500 mg PO TID 10 Days #30 tab 09/22/20 Ondansetron [Zofran 4mg ODT] 4 mg PO Q8HP PRN #12 tab.rapdis 09/22/20 predniSONE [Deltasone 10mg tablet] 10 mg PO BID 3 Days #6 tab 09/22/20 Ondansetron [Zofran 4mg ODT] 4 mg PO Q8HP PRN #20 tab 02/04/21 Allergies Allergy/AdvReac Type Severity Reaction Status Date / Time naproxen [From Aleve] Allergy Severe Anaphylaxis Verified 05/01/20 08:33 [facility] History - Hepatitis A Screen Attestation statement:: This patient has been screened for Hepatitis A risk factors. I have reviewed the patient's past medical history: Yes Medical History: Reports:: Anxiety, Depression, Kidney Stones Denies:: Cancer, Diabetes Mellitus Type 1, Diabetes Mellitus Type 2, Hypertension, Internal Pacemaker, MRSA, Seizures Other Medical History: Reports: Other. Denies: Blood Transfusion Reaction Laterality Cases: Left: Other Other Surgeries: Yes: Cholecystectomy, Hernia Repair, Other. No: Pacemaker Amputation: No Fractures: Yes (LT ankle) - Social History Smoking Status: Never smoker Tobacco Type: smokeless tobacco # Packs/Day (cigarettes): 1 Alcohol Intake: current [employer]
--- NOTE | 2021-02-04 14:34 | ECG_ITS ---
APPROVED REPORT Exam: Resting ECG HR:56 bpm ECG Measurements Heart Rate 56 AXES CO 200 P 30 QRSd 86 QRS 56 QT 418 T 21 QTc 403 Conclusion Sinus bradycardia Otherwise normal ECG Electronically signed by : Jasbir Redd MD 02/05/2021 13:51:52
--- NOTE | 2021-02-04 14:52 | PC.NURSE ---
PT REFUSES TRANSFER TO ER FOR FURTHER WORK UP.
[2021-02-04 14:53] VITALS: BP 150/96; PULSE 59; RESP 14; TEMP 36.8
== END 2021-02-04 15:00 | disposition home or self-care (01) ==
PROVIDERS: Emergency Provider Nurse Practitioner Family
DX: R11.2 Nausea with vomiting, unspecified (principal); T88.7XXA Unspecified adverse effect of drug or medicament, initial encounter; F41.8 Other specified anxiety disorders; Z87.442 Personal history of urinary calculi
CPT/HCPCS: 93005; 93041; 99202; G0463

== ENCOUNTER 2021-03-17 10:16 | Emergency (ER) | payer BC, SELFPAY ==
[2021-03-17 10:30] VITALS: BP 122/80; PULSE 68; RESP 19; TEMP 36.7; O2SAT 99; BMI 27.8
--- NOTE | 2021-03-17 11:15 | HMH.EDUTC ---
[facility] [place] Clinical Impression: Sinusitis Qualifiers: Sinusitis location: unspecified location Chronicity: unspecified Qualified Code(s): J32.9 - Chronic sinusitis, unspecified Disposition: Home, Self-Care Condition on Discharge: Good Instructions: Sinusitis, DI for Sinusitis, Amoxicillin and Clavulanic Acid Additional Instructions: *Monitor Temp, Over the counter Motrin or Tylenol as directed/as needed Tylenol every 4 hours and Motrin every 6 hours (as long as your family doctor has told you that you can take it) for fever or pain. and straight to ER if unable to lower temp less than 101.0 after medication given *Warm salt water gargles may help to soothe the throat *Throat Lozenges *Warm fluids like tea with honey may help to soothe the throat *Sleep elevated *Humidifier/Vaporizer *Flonase 2 sprays in each nostril daily but be aware that it may take 2-3 days before you notice improvement Follow up IMMEDIATELY for new or worsening symptoms or no Noticeable improvement over the next 48-72 hours. 911 for difficulty breathing or swallowing You were tested for today for COVID19 your test result should be back in the next 24-48 hours, you may call to the [facility] to see if your test results are back in the next 48 hours [phone] [facility] hours are 9am-9pm You was given a handout with instructions for Self Quarantine and Self isolation for while you wait on test results and what to do if they are positive If you are positive the Health Dept will be contacting you also Make sure to take your Vitamins Vit. C Vit D and Zinc if you can take them Prescriptions: Amoxicillin/Potassium Clav [Augmentin 875-125 Tablet] 1 tab PO Q12H 10 Days #20 tab Transmission Status: Pending to [facility] Fluticasone Propionate [Flonase 50mcg nasal spray 16gm] 1 spr NS DAILY #1 each Transmission Status: Pending to [facility] predniSONE [Prednisone 20mg Tab] 20 mg PO BID #10 tab Transmission Status: Pending to [facility] Referrals: Provider,Referral, MD [Primary Care Provider] - As needed Time of Disposition: 11:30 Medical Decision Making - Erickson Inquiry Pt receiving controlled substance: No Erickson was queried for this patient: No Vital Signs: 03/17/21 10:30 Temperature 98.1 F Temperature Source Oral Pulse Rate [Right Brachial] 68 Respiratory Rate 19 Blood Pressure [Right Arm] 122/80 Blood Pressure Mean [Right Arm] 94 Blood Pressure Source [Right Arm] Automatic Cuff Blood Pressure Position [Right Arm] Sitting 02 Sat by Pulse Oximetry 99 Oxygen Delivery Method Room Air - Lab Data Lab Results 03/17/21 10:44: Influenza Type A Ag Negative, Influenza Type B Ag Negative 03/17/21 10:44: Strep Scn Rapid Clinic Negative Orders (Tests/Meds): ORDERS Category Date Time Status Strep Screen Confirmation Stat Micro 03/17/21 10:44 Received [facility] [place] HPI - General Stated complaint: sore throat, cough, congestion, h/a Time Seen by Provider: 03/17/21 11:15 Mode of Arrival: Ambulatory Source of Information: Patient Limitations: No Limitations Description of Symptoms (Recalled from Triage Doc. by RN): PATIENT C/O HEADACHE, RUNNY NOSE, SORE THROAT, AND SNEEZING SINCE MONDAY HEENT Symptoms (Recalled from RN notes): Yes Resp Symptoms (Recalled from RN notes): No Skin Symptoms (Recalled from RN notes): No MS Symptoms (Recalled from RN notes): No Functional Status (Recalled from RN notes): WNL - History of Present Illness Provider Complaint: Patient state that he thinks he may have a sinus infection State that he has been having sinus pain and pressure along with sinus headache headache and scratchy throat state that feels like it does when he gets a sinus infection - Related Data Previous Rx's Medication Instructions Recorded Amoxicillin/Potassium Clav 1 tab PO Q12H 10 Days #20 tab 03/17/21 [Augmentin 875-125 Tablet] Fluticasone Propionate [Flonase 1 spr NS DAILY #1 each 03/17/21 50mcg na
[2021-03-17 11:17] LABS: UTC Strep Screen (Rapid) Negative (Negative)
[2021-03-17 11:18] LABS: UTC Influenza A Antigen Negative (Negative); UTC Influenza B Antigen Negative (Negative)
[2021-03-17 11:40] VITALS: BP 122/80; PULSE 68; RESP 19; TEMP 36.7; O2SAT 99
== END 2021-03-17 11:44 | disposition home or self-care (01) ==
PROVIDERS: Emergency Provider Nurse Practitioner
DX: J32.9 Chronic sinusitis, unspecified (principal); J02.9 Acute pharyngitis, unspecified; F41.8 Other specified anxiety disorders; Z87.442 Personal history of urinary calculi
CPT/HCPCS: 87804; 87880; 99203; G0463

== ENCOUNTER 2021-07-12 10:54 | Emergency (ER) | payer BC, SELFPAY ==
[2021-07-12 11:12] VITALS: BP 141/86; PULSE 70; RESP 19; TEMP 36.9; O2SAT 98; BMI 27.9
--- NOTE | 2021-07-12 11:42 | HMH.EDUTC ---
[facility] [place] Disposition Clinical Impression: Bronchitis Disposition: Home, Self-Care Condition on Discharge: Good Instructions: DI for Acute Bronchitis Additional Instructions: Drink plenty of fluids. Take tylenol or ibuprofen for pain or fever. Take the medications as directed. Follow up with your regular doctor. GO TO THE ER FOR ANY WORSENING SYMPTOMS The cough medication (promethazine dm) will make you drowsy, so don't drive or operate heavy machinery after taking it. Prescriptions: Promethazine/Dextromethorphan [Promethazine-Dm Syrup] 5 ml PO Q6HP PRN #240 ml PRN Reason: Cough [facility] Amoxicillin/Potassium Clav [Amox-Clav 875-125 mg Tablet] 1 tab PO BID #20 tab Transmission Status: [facility] methylPREDNISolone [Medrol] 4 mg PO DIRECTED 6 Days #21 packet Transmission Status: [facility] guaiFENesin [Mucinex 600mg tablet] 1 - 2 tab PO BIDP PRN #30 tab PRN Reason: Congestion Transmission Status[facility] Referrals: Provider,Referral, [Primary Care Provider] - Time of Disposition: 11:57 Medical Decision Making - Medical Records Medical records reviewed: No: I reviewed the patient's medical records. - Erickson Inquiry Pt receiving controlled substance: No Vital Signs: 07/12/21 11:12 07/12/21 11:58 Temperature 98.4 F 98.4 F Temperature Source Oral Pulse Rate 70 Pulse Rate [Left] 70 Respiratory Rate 19 19 Blood Pressure 141/86 H Blood Pressure [Right Arm] 141/86 H Blood Pressure Mean [Right Arm] 104 02 Sat by Pulse Oximetry 98 - Lab Data Lab results reviewed: Yes: I reviewed the patient's lab results. [facility] [place] HPI - General Stated complaint: cough, vomiting Time Seen by Provider: 07/12/21 11:42 Mode of Arrival: Ambulatory Source of Information: Patient Limitations: No Limitations Description of Symptoms (Recalled from Triage Doc. by RN): pt c/o a cough x2wks. HEENT Symptoms (Recalled from RN notes): No Resp Symptoms (Recalled from RN notes): Yes Skin Symptoms (Recalled from RN notes): No MS Symptoms (Recalled from RN notes): No Functional Status (Recalled from RN notes): wnl - History of Present Illness Provider Complaint: He c/o having a cough, chest congestion, and feeling bad at times for the past 2 weeks. - Related Data Previous Rx's Medication Instructions Recorded Amoxicillin/Potassium Clav 1 tab PO Q12H 10 Days #20 tab 03/17/21 [Augmentin 875-125 Tablet] Fluticasone Propionate [Flonase 1 spr NS DAILY #1 each 03/17/21 50mcg nasal spray 16gm] predniSONE [Prednisone 20mg 20 mg PO BID #10 tab 03/17/21 Tab] Amoxicillin/Potassium Clav 1 tab PO BID #20 tab 07/12/21 [Amox-Clav 875-125 mg Tablet] Promethazine/Dextromethorphan 5 ml PO Q6HP PRN #240 ml 07/12/21 [Promethazine-Dm Syrup] guaiFENesin [Mucinex 600mg tablet] 1 - 2 tab PO BIDP PRN #30 tab 07/12/21 methylPREDNISolone [Medrol] 4 mg PO DIRECTED 6 Days #21 07/12/21 packet Allergies Allergy/AdvReac Type Severity Reaction Status Date / Time naproxen [From Aleve] Allergy Severe Anaphylaxis Verified 05/01/20 08:33 - Worker's Comp Is this a Worker's Comp case?: No [facility] History - Hepatitis A Screen Drug use history?: No High risk sexual behaviors?: No History of sexually transmitted infection?: No Currently employed?: No Childcare worker?: No Do you have indoor plumbing?: Yes Do you have electricity?: Yes Attestation statement:: This patient has been screened for Hepatitis A risk factors. I have reviewed the patient's past medical history: Yes Medical History: Reports:: Anxiety, Depression, Kidney Stones Denies:: Cancer, Diabetes Mellitus Type 1, Diabetes Mellitus Type 2, Hypertension, Internal Pacemaker, MRSA, Seizures Other Medical History: Reports: Other. Denies: Blood Transfusion Reaction Laterality Cases: Left: Other Other Surgeries: Yes: Chol
[2021-07-12 11:58] VITALS: BP 141/86; PULSE 70; RESP 19; TEMP 36.9
== END 2021-07-12 12:00 | disposition home or self-care (01) ==
PROVIDERS: Emergency Provider Nurse Practitioner Family
DX: J40 Bronchitis, not specified as acute or chronic (principal); N20.2 Calculus of kidney with calculus of ureter; F32.A Depression, unspecified; F41.9 Anxiety disorder, unspecified; F17.290 Nicotine dependence, other tobacco product, uncomplicated; Z79.51 Long term (current) use of inhaled steroids; Z79.52 Long term (current) use of systemic steroids; Z79.899 Other long term (current) drug therapy; Z88.6 Allergy status to analgesic agent
CPT/HCPCS: 99213; G0463

== ENCOUNTER 2022-07-26 08:43 | Emergency (ER) | payer BC, SELFPAY ==
[2022-07-26 08:44] VITALS: BP 133/82; PULSE 64; RESP 17; TEMP 36.7; O2SAT 97; BMI 28.5
--- NOTE | 2022-07-26 09:02 | EXP.UTC ---
Discharge Plan Disposition Patient Disposition: Home, Self-Care Condition: Good Prescriptions Prescriptions: New amoxicillin [amoxicillin] 875 mg tablet 875 mg PO Q12H Qty: 20 0RF prednisone 10 mg tablet 10 mg PO BID 3 Days Qty: 6 0RF No Action prednisone 20 MG tablet 20 mg PO BID Qty: 10 0RF fluticasone propionate 120 SPR/BOT bottle 1 spr NS DAILY Qty: 1 0RF Rx Instructions: one spray each nostril daily amoxicillin-pot clavulanate 1 EACH tablet 1 tab PO Q12H 10 Days Qty: 20 0RF promethazine-DM 120 ML syrup 5 ml PO Q6HP PRN (Reason: Cough) Qty: 240 0RF methylprednisolone 4 MG tablets,dose pack 4 mg PO DIRECTED 6 Days Qty: 21 0RF amoxicillin-pot clavulanate 1 EACH tablet 1 tab PO BID Qty: 20 0RF guaifenesin 600 MG tablet extended release 12hr 1 - 2 tab PO BIDP PRN (Reason: Congestion) Qty: 30 0RF Referrals Follow up/Referrals: Provider,Referral, MD [Primary Care Provider] - See instructions Activity Restrictions/Add. Instructions Additional Instructions/Restrictions: Drink plenty of fluids. Take tylenol or ibuprofen for pain or fever. Take the medications as directed. Follow up with your regular doctor. GO TO THE ER FOR ANY WORSENING SYMPTOMS Throw your tooth brush away and get a new one. Clinical Impressions Clinical Impression: Pharyngitis Stand Alone Forms Stand Alone Forms: Work/School Release Instructions Patient Instructions: Strep Throat, DI for Strep Throat Discharge ED Provider: Norman Greene [facility] General Stated complaint: Sore throat, LT ear pain Time Seen by Provider: 07/26/22 09:02 History of Present Illness Provider Complaint: He states that for the past 2 days he has had worsening sore throat, chills, malaise and ear pain. Related Data Previous Rx's Medication Instructions Recorded amoxicillin 875 mg-potassium 1 tab PO Q12H 10 days #20 tabs 03/17/21 clavulanate 125 mg tablet fluticasone propionate 50 1 spr NS DAILY #1 ea 03/17/21 mcg/actuation nasal spray,suspension prednisone 20 mg tablet 20 mg PO BID #10 tabs 03/17/21 amoxicillin 875 mg-potassium 1 tab PO BID #20 tabs 07/12/21 clavulanate 125 mg tablet guaifenesin 600 mg tablet, 1 - 2 tab PO BIDP PRN Congestion 07/12/21 extended release 12 hr #30 tabs methylprednisolone 4 mg tablets in 4 mg PO DIRECTED 6 days #21 07/12/21 a dose pack packets promethazine-DM 6.25 mg-15 mg/5 mL 5 ml PO Q6HP PRN Cough #240 mL 07/12/21 oral syrup amoxicillin 875 mg tablet 875 mg PO Q12H #20 tabs 07/26/22 prednisone 10 mg tablet 10 mg PO BID 3 days #6 tabs 07/26/22 Allergies Allergy/AdvReac Type Severity Reaction Status Date / Time naproxen [From Aleve] Allergy Severe Anaphylaxis Verified 05/01/20 08:33 [facility] Disclaimer: The information contained in this section may have been updated after the patient was seen, as this information can be updated by other users. Social History Smoking Status: Never smoker second hand exposure: Yes alcohol intake: current substance use type: denies use current occupational status: other Travel in the last 8 weeks: None household members: family housing: house current occupational exposures/hazards: No caffeine: Yes ROS Obtained: Yes All systems reviewed & no additional complaints except as documented Constitutional Constitutional: Reports chills and Reports fever(s) Eyes Eyes: Denies eye discharge ENT Ears, Nose, Mouth, and Throat: Reports as per HPI Cardiovascular Cardiovascular: Denies chest pain Respiratory Respiratory: Denies chest congestion and Reports cough Gastrointestinal Gastrointestingal: Reports nausea; Denies abdominal pain, constipation, cramping, diarrhea or vomiting Musculoskeletal Musculoskeletal: Denies arthralgias Integumentary/Breasts Skin/Breast: Denies rash Neurologic Neurologic: Denies paresthesias
[2022-07-26 09:38] VITALS: BP 133/82; PULSE 64; RESP 18; TEMP 36.7; O2SAT 97
== END 2022-07-26 09:38 | disposition home or self-care (01) ==
PROVIDERS: Emergency Provider Nurse Practitioner Family
DX: J02.9 Acute pharyngitis, unspecified (principal); H92.02 Otalgia, left ear; R53.81 Other malaise
CPT/HCPCS: 99212; 99214; G0463

== ENCOUNTER 2022-10-12 12:18 | Emergency (ER) | payer BC, SELFPAY ==
[2022-10-12 12:19] VITALS: BP 146/95; PULSE 69; RESP 18; TEMP 36.6; O2SAT 96; BMI 28.1
--- NOTE | 2022-10-12 12:32 | EXP.UTC ---
Discharge Plan Disposition Patient Disposition: Home, Self-Care Condition: Good Prescriptions Prescriptions: New methylprednisolone 4 mg Tablets,Dose Pack 4 mg PO DIRECTED Qty: 21 0RF amoxicillin-pot clavulanate 875-125 mg Tablet 1 tab PO Q12H Qty: 20 0RF benzonatate [benzonatate] 100 mg capsule 100 mg PO TIDP PRN (Reason: Cough) Qty: 30 0RF No Action prednisone 20 MG tablet 20 mg PO BID Qty: 10 0RF fluticasone propionate 120 SPR/BOT bottle 1 spr NS DAILY Qty: 1 0RF Rx Instructions: one spray each nostril daily amoxicillin-pot clavulanate 1 EACH tablet 1 tab PO Q12H 10 Days Qty: 20 0RF promethazine-DM 120 ML syrup 5 ml PO Q6HP PRN (Reason: Cough) Qty: 240 0RF methylprednisolone 4 MG tablets,dose pack 4 mg PO DIRECTED 6 Days Qty: 21 0RF amoxicillin-pot clavulanate 1 EACH tablet 1 tab PO BID Qty: 20 0RF guaifenesin 600 MG tablet extended release 12hr 1 - 2 tab PO BIDP PRN (Reason: Congestion) Qty: 30 0RF amoxicillin [amoxicillin] 875 mg tablet 875 mg PO Q12H Qty: 20 0RF prednisone 10 mg tablet 10 mg PO BID 3 Days Qty: 6 0RF Referrals Follow up/Referrals: Provider,Referral, MD [Primary Care Provider] - See instructions Activity Restrictions/Add. Instructions Additional Instructions/Restrictions: Drink plenty of fluids. Take tylenol or ibuprofen for pain or fever. Take the medications as directed. Follow up with your regular doctor. GO TO THE ER FOR ANY WORSENING SYMPTOMS Clinical Impressions Clinical Impression: Sinusitis Instructions Patient Instructions: Sinusitis, DI for Sinusitis Discharge ED Provider: Norman Greene [facility] General Stated complaint: runny nose, eyes feel swollen, itchy Time Seen by Provider: 10/12/22 12:32 History of Present Illness Provider Complaint: He states that for the past 3 days he has had worsening sinus congestion. Related Data Previous Rx's Medication Instructions Recorded amoxicillin 875 mg-potassium 1 tab PO Q12H 10 days #20 tabs 03/17/21 clavulanate 125 mg tablet fluticasone propionate 50 1 spr NS DAILY #1 ea 03/17/21 mcg/actuation nasal spray,suspension prednisone 20 mg tablet 20 mg PO BID #10 tabs 03/17/21 amoxicillin 875 mg-potassium 1 tab PO BID #20 tabs 07/12/21 clavulanate 125 mg tablet guaifenesin 600 mg tablet, 1 - 2 tab PO BIDP PRN Congestion 07/12/21 extended release 12 hr #30 tabs methylprednisolone 4 mg tablets in 4 mg PO DIRECTED 6 days #21 07/12/21 a dose pack packets promethazine-DM 6.25 mg-15 mg/5 mL 5 ml PO Q6HP PRN Cough #240 mL 07/12/21 oral syrup amoxicillin 875 mg tablet 875 mg PO Q12H #20 tabs 07/26/22 prednisone 10 mg tablet 10 mg PO BID 3 days #6 tabs 07/26/22 amoxicillin 875 mg-potassium 1 tab PO Q12H #20 tabs 10/12/22 clavulanate 125 mg tablet benzonatate 100 mg capsule 100 mg PO TIDP PRN Cough #30 caps 10/12/22 methylprednisolone 4 mg tablets in 4 mg PO DIRECTED #21 tabs 10/12/22 a dose pack Allergies Allergy/AdvReac Type Severity Reaction Status Date / Time naproxen [From Aleve] Allergy Severe Anaphylaxis Verified 05/01/20 08:33 [facility] Disclaimer: The information contained in this section may have been updated after the patient was seen, as this information can be updated by other users. Social History Smoking Status: Never smoker second hand exposure: Yes alcohol intake: current substance use type: denies use current occupational status: other Travel in the last 8 weeks: None household members: family housing: house current occupational exposures/hazards: No caffeine: Yes ROS Obtained: Yes All systems reviewed & no additional complaints except as documented Constitutional Constitutional: Reports poor appetite Eyes Eyes: Reports system reviewed and no additional complaints, except as documented ENT Ears, Nose, Mouth, and Throa
[2022-10-12 12:43] VITALS: BP 146/95; PULSE 69; RESP 18; TEMP 36.6; O2SAT 96
== END 2022-10-12 12:44 | disposition home or self-care (01) ==
PROVIDERS: Emergency Provider Nurse Practitioner Family
DX: J01.90 Acute sinusitis, unspecified (principal)
CPT/HCPCS: 99212; 99214; G0463

== ENCOUNTER 2022-12-10 22:36 | Emergency (ER) | payer BC, SELFPAY ==
--- NOTE | 2022-12-10 22:31 | ECG_ITS ---
APPROVED REPORT Exam: Resting ECG HR:85 bpm ECG Measurements Heart Rate 85 AXES OH 195 P 51 QRSd 94 QRS 40 QT 346 T 40 QTc 388 Conclusion SINUS RHYTHM NORMAL ECG UNCONFIRMED REPORT Electronically signed by : Jasbir Redd MD 12/11/2022 15:06:55
[2022-12-10 22:36] VITALS: BP 144/104; PULSE 84; RESP 18; TEMP 36.7; O2SAT 99; BMI 17.4
--- NOTE | 2022-12-10 22:37 | XR_ITS ---
PROCEDURE INFORMATION: Exam: XR Chest Exam date and time: 12/10/2022 10:59 PM Age: 42 years old Clinical indication: Pain; Chest pressure; Additional info: Cp TECHNIQUE: Imaging protocol: Radiologic exam of the chest. Views: 1 view. COMPARISON: CR XR ACUTE ABDOMEN SERIES 07/07/2020 3:34 PM FINDINGS: Lungs: Low lung volumes. No consolidation. Pleural spaces: Unremarkable. No pleural effusion. No pneumothorax. Heart/Mediastinum: Unremarkable. No cardiomegaly. Vasculature: Unremarkable. Bones/joints: Unremarkable. IMPRESSION: No acute findings.
--- NOTE | 2022-12-10 22:41 | HMH.EDGENADL ---
Discharge Plan Disposition Patient Disposition: Home, Self-Care Condition: Good Prescriptions Prescriptions: No Action prednisone 20 MG tablet 20 mg PO BID Qty: 10 0RF fluticasone propionate 120 SPR/BOT bottle 1 spr NS DAILY Qty: 1 0RF Rx Instructions: one spray each nostril daily amoxicillin-pot clavulanate 1 EACH tablet 1 tab PO Q12H 10 Days Qty: 20 0RF methylprednisolone 4 mg Tablets,Dose Pack 4 mg PO DIRECTED Qty: 21 0RF amoxicillin-pot clavulanate 875-125 mg Tablet 1 tab PO Q12H Qty: 20 0RF benzonatate [benzonatate] 100 mg capsule 100 mg PO TIDP PRN (Reason: Cough) Qty: 30 0RF promethazine-DM 120 ML syrup 5 ml PO Q6HP PRN (Reason: Cough) Qty: 240 0RF methylprednisolone 4 MG tablets,dose pack 4 mg PO DIRECTED 6 Days Qty: 21 0RF amoxicillin-pot clavulanate 1 EACH tablet 1 tab PO BID Qty: 20 0RF guaifenesin 600 MG tablet extended release 12hr 1 - 2 tab PO BIDP PRN (Reason: Congestion) Qty: 30 0RF amoxicillin [amoxicillin] 875 mg tablet 875 mg PO Q12H Qty: 20 0RF prednisone 10 mg tablet 10 mg PO BID 3 Days Qty: 6 0RF Referrals Follow up/Referrals: Provider,Referral, MD [Primary Care Provider] - See instructions Activity Restrictions/Add. Instructions Additional Instructions/Restrictions: Please follow-up with your primary care provider. Please return to the emergency department if you develop any new or worsening symptoms or become concerned for your health. Clinical Impressions Clinical Impression: Pre-syncope Hypertension Qualifiers: Hypertension type: unspecified Qualified Code(s): I10 - Essential (primary) hypertension Instructions Patient Instructions: DI for Syncope in Adults (Fainting), DI for Syncope in Children (Fainting) Discharge ED Provider: Elizabeth Landis General Adult HPI <Elizabeth Landis DO - Last Filed: 12/10/22 23:56> General Chief complaint: Syncope Stated complaint: chest pain Time Seen by Provider: 12/10/22 22:37 History of Present Illness HPI narrative: This patient is a 42-year-old male with a history of depression and anxiety presenting to the emergency department for evaluation with concern that he suddenly began feeling unwell. He reports that he was riding in the car with his girlfriend when he suddenly started feeling nauseated and having left arm pain. He stated that he just felt sick like something was not right. He is also experiencing some pain along his right flank. He also complained of lightheadedness. He is starting to feel better now, but initially when he got out of the car he collapsed to the ground. He was well prior to the sudden onset of symptoms. He ate approximately 1 hour prior to arrival. He denies any recent fevers, chills, cough, congestion, vomiting, changes in bowel movements, dysuria, hematuria, rashes, or swelling. Related Data Previous Rx's Medication Instructions Recorded amoxicillin 875 mg-potassium 1 tab PO Q12H 10 days #20 tabs 03/17/21 clavulanate 125 mg tablet fluticasone propionate 50 1 spr NS DAILY #1 ea 03/17/21 mcg/actuation nasal spray,suspension prednisone 20 mg tablet 20 mg PO BID #10 tabs 03/17/21 amoxicillin 875 mg-potassium 1 tab PO BID #20 tabs 07/12/21 clavulanate 125 mg tablet guaifenesin 600 mg tablet, 1 - 2 tab PO BIDP PRN Congestion 07/12/21 extended release 12 hr #30 tabs methylprednisolone 4 mg tablets in 4 mg PO DIRECTED 6 days #21 07/12/21 a dose pack packets promethazine-DM 6.25 mg-15 mg/5 mL 5 ml PO Q6HP PRN Cough #240 mL 07/12/21 oral syrup amoxicillin 875 mg tablet 875 mg PO Q12H #20 tabs 07/26/22 prednisone 10 mg tablet 10 mg PO BID 3 days #6 tabs 07/26/22 amoxicillin 875 mg-potassium 1 tab PO Q12H #20 tabs 10/12/22 clavulanate 125 mg tablet benzonatate 100 mg capsule 100 mg PO TIDP PRN Cough #30 caps 10/12/22 methylprednisolone 4 mg tablets in 4 mg PO DIRECTED #21 tabs 10/12/22 a dose pack Allergies Allerg
[2022-12-10 22:47] LABS: Basophils # 0.1 K/mm3 (0-0.2); Basophils % 0.9 % (0.1-2.0); Eosinophils # 0.1 K/mm3 (0.0-0.4); Eosinophils % 1.2 % (0.1-12.0); Hematocrit 47.1 % (42.0-52.0); Hemoglobin 16.1 g/dL (14.1-18.0); Lymphocytes # 3.8 K/mm3 (0.7-4.5); Lymphocytes % 34.8 % (10-50); Mean Corpuscular HGB Conc 34.2 g/dL (31.8-35.4); Mean Corpuscular Hemoglobin 30.2 pg (27.0-31.2); Mean Corpuscular Volume 88.3 fl (80-94); Mean Platelet Volume 8.3 fl (7.4-10.4); Monocytes # 0.7 K/mm3 (0.1-1.0); Monocytes % 6.9 % (1.7-9.3); Neutrophils # 6.1 K/mm3 (1.8-7.8); Neutrophils % 56.2 % (37.0-80.0); Platelet Count 264 K/mm3 (142-424); Red Blood Count 5.33 M/mm3 (4.60-6.20); Red Cell Distribution Width 13.7 % (11.5-17.5); White Blood Count 10.8 K/mm3 (4.8-10.8)
[2022-12-10 22:51] LABS: Alanine Aminotransferase 68 U/L (12-78); Albumin Level 4.7 g/dl (3.5-5.0); Albumin/Globulin Ratio 1.2 (1.1-1.8); Alkaline Phosphatase 104 U/L (38-126); Anion Gap 14.6 mEq/L (5-15); Aspartate Amino Transferase 46 U/L (17-59); Bilirubin,Total 0.8 mg/dl (0.2-1.3); Blood Urea Nitrogen 13 mg/dl (9-20); Calcium 9.3 mg/dl (8.4-10.2); Carbon Dioxide 27 mmol/L (22.0-30.0); Chloride 101 mmol/L (98-107); Creatinine Clearance Estimated 59 mL/min (50-200); Estimated Glomerular Filt Rate 66 ml/min (>60); GFR (African American) 80 ML/MIN (>60); Globulin 3.8 g/dL (1.3-3.2); Glucose 108 mg/dl (74-100); Lipase 105 U/L (23-300); Potassium 3.6 mmoL/L (3.5-5.1); Sodium 139 mmol/L (136-145); Total Protein,Serum 8.5 g/dl (6.3-8.2)
[2022-12-10 22:53] VITALS: BP 164/102; PULSE 68; RESP 15; O2SAT 100
[2022-12-10 23:04] LABS: Troponin I < 0.01 ng/ml (0.00-0.034)
[2022-12-10 23:30] VITALS: BP 181/112; PULSE 67; RESP 16; O2SAT 100
--- NOTE | 2022-12-10 23:50 | CT_ITS ---
PROCEDURE INFORMATION: Exam: CT Head Without Contrast Exam date and time: 12/11/2022 12:03 AM Age: 42 years old Clinical indication: Syncope and collapse; Additional info: Headache, syncope, HTN TECHNIQUE: Imaging protocol: Computed tomography of the head without contrast. Radiation optimization: All CT scans at this facility use at least one of these dose optimization techniques: automated exposure control; mA and/or kV adjustment per patient size (includes targeted exams where dose is matched to clinical indication); or iterative reconstruction. REPORTING DATA: Count of CT and Cardiac NM exams in prior 12 months: This patient has received 0 known CTs and 0 known cardiac nuclear medicine studies in the 12 months prior to the current study. COMPARISON: No relevant prior studies available. FINDINGS: Brain: Normal. No hemorrhage. Unremarkable white matter. No mass effect. Cerebral ventricles: No ventriculomegaly. Paranasal sinuses: Visualized sinuses are unremarkable. No fluid levels. Mastoid air cells: Visualized mastoid air cells are well aerated. Orbital cavities: The orbital contents are symmetric and normal. Bones/joints: Unremarkable. No acute fracture. Soft tissues: Unremarkable. IMPRESSION: No acute intracranial abnormality.
--- NOTE | 2022-12-11 00:19 | PC.NURSE ---
Rounded on patient; nothing needed at this time. Patient ambulated to and from bathroom.
[2022-12-11 00:21] LABS: Microscopic, Urine URINE MICROSCOPIC (MICROSCOPIC)
[2022-12-11 00:23] LABS: Appearance,Urine CLEAR (Clear); Bilirubin,Urine Negative (Negative); Blood, Urine Negative (Negative); Color,Urine YELLOW (Yellow); Glucose,Urine (UA) Negative (Negative); Ketones,Urine Negative (Negative); Leukocyte Esterase,Urine Negative (Negative); Nitrate,Urine Negative (Negative); Protein,Urine Negative (Negative); Specific Gravity, Urine 1.015 (1.005-1.030); Urobilinogen,Urine 0.2 EU/dl (0.2)
[2022-12-11 00:28] LABS: WBC,Urine Occasional #/hpf (0-3)
[2022-12-11 00:30] VITALS: BP 163/99; PULSE 81; RESP 20; O2SAT 99
[2022-12-11 00:34] LABS: D-Dimer < 0.25 ug/mL (0.0-0.5)
[2022-12-11 01:00] VITALS: BP 158/101; PULSE 78; RESP 19; O2SAT 97
--- NOTE | 2022-12-11 01:01 | PC.NURSE ---
Report handed off to maintenance mechanic 2nd shift
[2022-12-11 01:30] VITALS: BP 161/106; PULSE 81; RESP 19; O2SAT 97
[2022-12-11 02:28] LABS: Troponin I < 0.01 ng/ml (0.00-0.034)
[2022-12-11 02:35] VITALS: BP 182/92; PULSE 72; RESP 20; TEMP 36.6; O2SAT 96
== END 2022-12-11 02:49 | disposition home or self-care (01) ==
PROVIDERS: Emergency Medicine; Emergency Provider Emergency Medicine
DX: R55 Syncope and collapse (principal); M79.602 Pain in left arm; R11.0 Nausea; I10 Essential (primary) hypertension; F32.A Depression, unspecified; F41.9 Anxiety disorder, unspecified; F17.290 Nicotine dependence, other tobacco product, uncomplicated
CPT/HCPCS: 70450; 71045; 80053; 81001; 83690; 84484; 85025; 85378; 93005; 99285

== ENCOUNTER 2023-11-23 09:27 | Day surgery (SDC) | payer BC, SELFPAY ==
[2023-11-20 16:54] VITALS: BMI 27.3
[2023-11-23] VITALS (7 sets, daily range): BP systolic 95–137; BP diastolic 45–86; PULSE 65–77; RESP 14–18; TEMP 36.4–36.6; O2SAT 93–100
--- NOTE | 2023-11-23 11:21 | HMH.SCOPE ---
Procedure: Date: 11/23/23 Patient Date of :: 1980 Procedure Performed:: Screening colonoscopy Indications:: History of polyps Last exam years ago Performing Provider:: Mary Lazo MD Referring Provider:: Raymond Lundberg MD Sedation:: Propofol Procedure:: After placing the patient in the left lateral decubitus position, the colonoscopy was gently inserted into the rectum and under direct visualization advanced to the cecum which was identified by transillumination in the right lower quadrant, identification of the ileocecal valve, appendiceal orifice, and cecal strap. Color, texture, mucosa, and anatomy of the colon were carefully examined with the scope. Findings:: Anal canal: normal Rectum: normal Sigmoid colon: normal without polyps or inflammatory changes Descending colon: normal without polyps or inflammatory changes Splenic flexure: normal Transverse colon: normal without polyps or inflammatory changes Hepatic flexure: normal Ascending colon: normal without polyps or inflammatory changes Cecum: normal Terminal ileum: not visualized Impression: Normal colonoscopy Recommendations:: Follow up examination in about TEN years or so, sooner if clinically indicated. Complications:: None Estimated blood obtained (mL): 0 Colonoscopy Component Colonoscopy Component Was a colonoscopy performed during today's procedure?: Yes Recommended follow up colonoscopy of at least 10 years?: Yes
--- NOTE | 2023-11-23 12:19 | EXP.ANES.CKL ---
[facility] Disclaimer: The information contained in this section may have been updated after the patient was seen, as this information can be updated by other users. Medical History History of lower leg fracture No significant past medical history Surgical History History of cholecystectomy History of inguinal hernia repair Family History Other No significant family history Social History Smoking Status: Current every day smoker tobacco type: smokeless tobacco second hand exposure: Yes alcohol intake: current alcohol intake frequency: 0-2 drinks per day substance use type: denies use current occupational status: employed Travel in the last 8 weeks: None household members: family housing: house current occupational exposures/hazards: No caffeine: Yes [facility] Anesthesia Checklist Patient Identification Patient Identification: Arm Band and Verbal (Name & ) Structural Data Admitted From: Home Planned Operative Procedure/s: Colonoscopy Consent for Planned Operative Procedure(s) Verified: Yes Verified Documents: Surgical Consent and History and Physical NPO Status Verified Time NPO: 00:00 Chart Verification Results Verified: CBC, BMP, ECG and Chest Xray Additional verifications Patient : No Anesthesia Reactions: Yes (PONV) Hx Blood Transfusions: No Blood Transfusion Reaction: No Cardiovascular Assessment Heart Sounds: S1 & S2 Pulse Rhythm: Irregular Peripheral Edema: No Airway Assessment Mallampati Score:: Class II C-Spine Mobility Assessed: Yes (FROM demonstrated) TMJ Mobility Assessed: Yes Dentition: Good Dentition (nothing loose per pt.) Neurological Assessment Level of Consciousness: Awake, Alert, Appropriate and Follows Commands Hx Seizures: No Numbness or tingling in extremities: No Anesthesia Plan Anesthesia Risk discussed: Yes Anesthesia Plan: Verified ASA Class: III Anesthesia Type: MAC
== END 2023-11-23 12:05 | disposition home or self-care (01) ==
PROVIDERS: PCP Family Medicine; Visit Provider Internal Medicine Gastroenterology
PROC: (CPT 45378; principal; 2023-11-23 11:00)
DX: Z86.010 Personal history of colon polyps (principal)
CPT/HCPCS: 45378; J7120

== ENCOUNTER 2023-12-07 09:40 | Emergency (ER) | payer BC, SELFPAY ==
[2023-12-07 09:51] VITALS: BP 126/95; PULSE 85; RESP 16; TEMP 36.7; O2SAT 95; BMI 29.0
--- NOTE | 2023-12-07 10:04 | EXP.UTC ---
Discharge Plan Disposition Patient Disposition: Home, Self-Care Prescriptions Prescriptions: New polymyxin B sulf-trimethoprim 10,000 unit- 1 mg/mL drops 1 drp Eye-Both Q3H 7 Days Qty: 10 0RF Rx Instructions: while awake; do not exceed 6 doses in 24 hours No Action lamotrigine 200 mg tablet 200 mg PO DAILY Patient Comments: TAKE 1 TABLET BY MOUTH EVERY DAY DIRECTED venlafaxine 150 mg capsule,extended release 24hr 150 mg PO DAILY Patient Comments: TAKE 1 CAPSULE BY MOUTH EVERY DAY WITH FOOD Referrals Follow up/Referrals: Raymond Lundberg MD [Primary Care Provider] - See instructions Activity Restrictions/Add. Instructions Additional Instructions/Restrictions: Use the eye drops as directed. Strict hand washing in the house hold, because conjunctivitis is very contagious. Follow up with your regular doctor. GO TO THE ER FOR ANY WORSENING SYMPTOMS OR CONCERNS Clinical Impressions Clinical Impression: Bilateral conjunctivitis, [place] eye disease of both eyes Stand Alone Forms Stand Alone Forms: Work/School Release Instructions Patient Instructions: How to Instill Eye Drops, Conjunctivitis Print Language Print Language: Somali Discharge ED Provider: Norman Greene [facility] General Stated complaint: possible pink eye Mode of Arrival: Ambulatory Source of Information: Patient Limitations: No Limitations Time Seen by Provider: 12/07/23 09:59 Description of Symptoms (Recalled from Triage Doc. by RN): Reports possible pink eye in bilateral eyes since this morning. HEENT Symptoms (Recalled from RN notes): Yes Resp Symptoms (Recalled from RN notes): No Skin Symptoms (Recalled from RN notes): No MS Symptoms (Recalled from RN notes): No Functional Status (Recalled from RN notes): wnl Related Data Home Medications ?Medication ?Instructions ?Recorded ?Confirmed lamotrigine 200 mg tablet 200 mg PO DAILY 11/20/23 11/23/23 venlafaxine 150 mg 150 mg PO DAILY 11/20/23 11/23/23 capsule,extended release 24 hr Previous Rx's ?Medication ?Instructions ?Recorded polymyxin B sulfate 10,000 1 drp Eye-Both Q3H 7 days #10 mL 12/07/23 unit-trimethoprim 1 mg/mL eye drops Allergies Allergy/AdvReac Type Severity Reaction Status Date / Time naproxen [From Aleve] Allergy Severe Anaphylaxis Verified 11/23/23 10:04 Worker's Comp Is this a Worker's Comp case?: No [facility] Disclaimer: The information contained in this section may have been updated after the patient was seen, as this information can be updated by other users. Medical History (Updated 12/07/23 @ 10:43 by Germaine Green RN) History of lower leg fracture No significant past medical history Surgical History History of cholecystectomy History of inguinal hernia repair Family History Other No significant family history Social History Smoking Status: Current every day smoker tobacco type: smokeless tobacco second hand exposure: Yes alcohol intake: current alcohol intake frequency: 0-2 drinks per day substance use type: denies use current occupational status: employed Travel in the last 8 weeks: None household members: family housing: house current occupational exposures/hazards: No caffeine: Yes ROS Obtained: Yes All systems reviewed & no additional complaints except as documented Constitutional Constitutional: Denies chills and Denies fever(s) Eyes Eyes: Denies change in vision and Reports eye discharge ENT Ears, Nose, Mouth, and Throat: Denies dizziness, Denies otalgia and Denies sore throat Cardiovascular Cardiovascular: Denies chest pain Respiratory Respiratory: Denies shortness of breath, Denies chest congestion, Denies cough, Denies stridor and Denies wheezing Gastrointestinal Gastrointestingal: Denies nausea or vomiting Musculoskeletal Musculoskeletal: Reports system reviewed and no additional complaints, except as documented and Denies arthralgias Integumentary/Breasts Skin/Breast: Denies rash Neurologic Neurologic: Denies dizziness and Denies paresthesias Allergic/Immunologic Allergic/Immunologic: Denies wheezing Physical Exam General General appearance: alert and in no apparent distress Head Head exam: atraumatic, normocephalic and normal inspection Eye Eye exam: Present PERRL, EOMI, conjunctival redness, conjunctival injection and discharge ENT ENT exam: Present normal exam, normal oropharynx, mucous membranes moist, TM's normal bilaterally and normal external ear exam Neck Neck exam: Present normal inspection, full ROM and trachea midline; Absent meningismus or lymphadenopathy Chest Chest inspection: Present normal inspection and symmetric chest wall rise; Absent tenderness Respiratory Respiratory exam: Present normal lung sounds bilaterally; Absent respiratory distress Cardiovascular Cardiovascular exam: Present regular rate and normal rhythm; Absent JVD Abdominal Exam Abdominal exam: Present soft and normal bowel sounds; Absent distention, tenderness or guarding Extremities Exam Extremities exam: Present normal inspection, full ROM and normal capillary refill; Absent calf tenderness Back Exam Back exam: Present normal inspection; Absent tenderness Neurological Exam Neurological exam: Present alert and oriented X3 Psychiatric Psychiatric exam: Present normal affect and normal mood Skin Skin exam: Present warm, dry, intact and normal color Lymphatic Lymphatic Findings: no adenopathy Medical Decision Making [place] Inquiry Pt receiving controlled substance: No Vital Signs: 12/07/23 09:51 Temperature 98.0 F Temperature Source Oral Pulse Rate [Radial] 85 Respiratory Rate 16 Blood Pressure [Right Arm] 126/95 H Blood Pressure Mean [Right Arm] 105 Blood Pressure Source [Right Arm] Automatic Cuff Blood Pressure Position [Right Arm] Sitting 02 Sat by Pulse Oximetry 95 Oxygen Delivery Method Room Air
[2023-12-07 10:41] VITALS: BP 126/95; PULSE 85; RESP 16; TEMP 36.7; O2SAT 95
== END 2023-12-07 10:43 | disposition home or self-care (01) ==
PROVIDERS: Emergency Provider Nurse Practitioner Family; PCP Family Medicine
DX: H10.33 Unspecified acute conjunctivitis, bilateral (principal)
CPT/HCPCS: 99212; 99214; G0463

== ENCOUNTER 2024-07-13 08:10 | Outpatient (CLI) | payer BC, SELFPAY ==
[2024-07-13 08:37] LABS: Basophils % 0.1 % (0.1-2.0); Hemoglobin 16.9 g/dL (14.1-18.0); Lymphocytes # 1.8 K/mm3 (0.7-4.5); Lymphocytes % 22.5 % (10-50); Mean Corpuscular HGB Conc 35.2 g/dL (31.8-35.4); Mean Corpuscular Hemoglobin 30.9 pg (27.0-31.2); Mean Corpuscular Volume 87.8 fl (80-94); Mean Platelet Volume 9.9 fl (7.4-10.4); Monocytes # 0.7 K/mm3 (0.1-1.0); Monocytes % 8.5 % (1.7-9.3); Neutrophils # 5.4 K/mm3 (1.8-7.8); Neutrophils % 68.6 % (37.0-80.0); Nucleated Red Blood Cells # 0 10^3/uL; Nucleated Red Blood Cells % 0 %; Platelet Count 235 K/mm3 (142-424); Red Blood Count 5.47 M/mm3 (4.60-6.20); Red Cell Distribution Width 12.7 % (11.5-17.5); Red Cell Distribution Width-SD 40.7 fL; White Blood Count 7.8 K/mm3 (4.8-10.8)
[2024-07-13 08:58] LABS: Alanine Aminotransferase 41 U/L (12-78); Albumin Level 4.2 g/dl (3.5-5.0); Albumin/Globulin Ratio 1.3 (1.1-1.8); Alkaline Phosphatase 86 U/L (38-126); Anion Gap 13.1 mEq/L (5-15); Aspartate Amino Transferase 30 U/L (17-59); Bilirubin,Total 0.9 mg/dl (0.2-1.3); Blood Urea Nitrogen 12 mg/dl (9-20); Calcium 9.1 mg/dl (8.4-10.2); Carbon Dioxide 22 mmol/L (22.0-30.0); Chloride 105 mmol/L (98-107); Chol/HDL Ratio 5.6 (1-3.5); Cholesterol 195 mg/dl (140-200); Estimated Glomerular Filt Rate 81 ml/min (>60); GFR (African American) 98 ML/MIN (>60); Globulin 3.2 g/dL (1.3-3.2); Glucose 113 mg/dl (74-100); HDL Cholesterol 35 mg/dl (40-60); Magnesium 2.2 mg/dl (1.6-2.3); Potassium 4.1 mmoL/L (3.5-5.1); Sodium 136 mmol/L (136-145); Total Protein,Serum 7.4 g/dl (6.3-8.2); Triglycerides 271 mg/dl (30-150); VLDL Cholesterol 54 mg/dL (0-40)
[2024-07-13 09:08] LABS: Hemoglobin A1C 5.3 % (4.0-6.0)
[2024-07-13 09:09] LABS: Direct LDL Cholesterol 118.77 mg/dL (100-129)
[2024-07-13 09:15] LABS: 25-OH Vitamin D, Total 15.8 ng/mL (30-100)
[2024-07-13 09:16] LABS: Free T4 (Free Thyroxine) 0.89 ng/dl (0.78-2.19)
[2024-07-13 09:29] LABS: Thyroid Stimulating Hormone 0.67 uIU/mL (0.465-4.68)
[2024-07-13 09:48] LABS: Vitamin B12 234 pg/mL (239-931)
[2024-07-14 07:28] LABS: Triiodothyronine (T3) Free 3.4 pg/mL (2.0-4.4)
[2024-07-18 18:13] LABS: Free Testosterone (Direct) 4.7 pg/mL (6.8-21.5); Testosterone, Total, LC/MS 301.2 ng/dL (264.0-916.0)
== END 2024-07-13 23:59 | disposition home or self-care (01) ==
PROVIDERS: PCP Family Medicine; Visit Provider Nurse Practitioner Psychiatric/Mental Health
DX: F31.81 Bipolar II disorder (principal); F41.9 Anxiety disorder, unspecified; R53.83 Other fatigue
CPT/HCPCS: 36415; 80053; 80061; 82306; 82607; 83036; 83735; 84402; 84403; 84439; 84443; 84481; 85025

== ENCOUNTER 2025-03-07 15:38 | Emergency (ER) | payer BC, SELFPAY ==
[2025-03-07] VITALS (9 sets, daily range): BP systolic 94–150; BP diastolic 67–113; PULSE 62–92; RESP 13–25; TEMP 36.6–37.1; O2SAT 94–100; BMI 28.3
--- NOTE | 2025-03-07 15:48 | ECG_ITS ---
APPROVED REPORT Exam: Resting ECG HR:85 bpm ECG Measurements Heart Rate [address] 182 P 52 QRSd 89 QRS 38 QT 339 T 34 QTc 382 Conclusion SINUS RHYTHM NONSPECIFIC T-WAVE ABNORMALITY BORDERLINE ECG UNCONFIRMED REPORT Electronically signed by : ABIMAEL MIDDLETON, 03/10/2025 00:20:57
--- NOTE | 2025-03-07 15:50 | [facility].EDGENADL ---
Discharge Plan Disposition Patient Disposition: Home, Self-Care Condition: Good Prescriptions Prescriptions: No Action polymyxin B sulf-trimethoprim 10,000 unit- 1 mg/mL drops 1 drp Eye-Both Q3H 7 Days Qty: 10 0RF Rx Instructions: while awake; do not exceed 6 doses in 24 hours lamotrigine 200 mg tablet 200 mg PO DAILY Patient Comments: TAKE 1 TABLET BY MOUTH EVERY DAY DIRECTED venlafaxine 150 mg capsule,extended release 24hr 150 mg PO DAILY Patient Comments: TAKE 1 CAPSULE BY MOUTH EVERY DAY WITH FOOD Referrals Follow up/Referrals: Raymond Lundberg MD [Primary Care Provider, Medical] - See instructions Activity Restrictions/Add. Instructions Additional Instructions/Restrictions: Return to the emergency department for any acute or worsening symptoms. Take your blood pressure daily for the next week and if it continues to be elevated follow-up with your primary care provider as you may need to be started on a low-dose high blood pressure medicine. Clinical Impressions Clinical Impression: Headache Instructions Patient Instructions: DI for Headache Print Language Print Language: Lao Discharge ED Provider: Peri Teague Adult HPI General Chief complaint: Dizziness Stated complaint: dizzy, high b/p, headache Time Seen by Provider: 03/07/25 15:50 Mode of Arrival: Ambulatory Source of Information: Patient Description of Symptoms (Recalled from ER Triage Doc. by RN): Yesterday while at work he started feeling light-headed and dizzy, had to leave and go home. States he started feeling that way again today and checked his blood pressure and it was elevated so he came to the ER. Patient denies a history of hypertension. History of Present Illness HPI narrative: Patient is a 44-year-old male with with no significant past medical history who presented to the emergency department with concerns for high blood pressure. Patient states that he has a headache was feeling lightheaded therefore checked his blood pressure at home which was elevated and which brought him here to the emergency department. States that his headache was not gradual onset. Patient states that his headache is currently a 9 out of 10. Patient denies any visual disturbances. Patient denies any chest pain shortness of breath abdominal pain nausea vomiting or diarrhea. Patient denies any viral symptoms. Related Data Home Medications ?Medication ?Instructions ?Recorded ?Confirmed lamotrigine 200 mg tablet 200 mg PO DAILY 11/20/23 11/23/23 venlafaxine 150 mg 150 mg PO DAILY 11/20/23 11/23/23 capsule,extended release 24 hr Previous Rx's ?Medication ?Instructions ?Recorded polymyxin B sulfate 10,000 1 drp Eye-Both Q3H 7 days #10 mL 12/07/23 unit-trimethoprim 1 mg/mL eye drops Allergies Allergy/AdvReac Type Severity Reaction Status Date / Time naproxen (From Aleve) Allergy Severe Anaphylaxis Verified 11/23/23 10:04 [facility] Disclaimer: The information contained in this section may have been updated after the patient was seen, as this information can be updated by other users. Medical History (Updated 03/07/25 @ 18:04 by Peri Teague DO) History of lower leg fracture No significant past medical history Surgical History History of cholecystectomy History of inguinal hernia repair Family History Other No significant family history Social History Smoking Status: Current every day smoker tobacco type: smokeless tobacco second hand exposure: Yes alcohol intake: current alcohol intake frequency: 0-2 drinks per day substance use type: denies use current occupational status: employed Travel in the last 8 weeks?: None household members: family housing: house current occupational exposures/hazards: No caffeine: Yes Have you lived/traveled outside [place] in past 30 days?: No Contact w/someone who lives/traveled outside [place] past 30 days?: No Exposure to someone with infectious disease in past 14 days?: No Do you have a fever (greater than 100.4 F or 38 C)?: No Have you tested positive for COVID-19?: No Exposed to someone with COVID-19 in past 14 days?: No Do you have a sore throat?: No Do you have a cough?: No Do you have any weakness?: No Do you have any diarrhea?: No Are you experiencing any unusual bleeding?: No Do you have any muscle aches/pain?: No Do you have any abdominal pain?: No Are you experiencing loss of taste or smell?: No Other Medical History Have you received the Flu Vaccine for this season: No Have you received the Pneumonia Vaccine: No ROS Obtained: Yes All systems reviewed & no additional complaints except as documented and Yes Systems reviewed as appropriate & no additional complaints except as documented Physical Exam General General appearance: alert and in no apparent distress Head Head exam: atraumatic, normocephalic and normal inspection Eye Eye exam: Present normal appearance, PERRL and EOMI; Absent scleral icterus ENT ENT exam: Present normal exam and normal external ear exam Neck Neck exam: Present normal inspection and full ROM Chest Chest inspection: Present normal inspection and symmetric chest wall rise Respiratory Respiratory exam: Present normal lung sounds bilaterally; Absent respiratory distress or wheezes Cardiovascular Cardiovascular exam: Present regular rate, normal rhythm and normal heart sounds Abdominal Exam Abdominal exam: Present soft and distention; Absent tenderness, guarding or rebound Extremities Exam Extremities exam: Present normal inspection and full ROM Back Exam Back exam: Present normal inspection and full ROM Neurological Exam Neurological exam: Present alert, oriented X3, CN II-XII intact and normal gait; Absent motor sensory deficit Psychiatric Psychiatric exam: Present normal affect and normal mood Skin Skin exam: Present warm and dry Medical Decision Making Medical Records Medical records reviewed: Yes I reviewed the patient's medical records. Screening: Per USPSTF and CDC recommendations, given the prevalence of disease in our region, it is our hospital?s policy to screen for HIV and viral Hepatitis for all patients aged 18 and over and those with ongoing risk factors. [place] Inquiry Pt receiving controlled substance: No Vital Signs: 03/07/25 15:44 03/07/25 15:45 03/07/25 15:56 Temperature 98.7 F Temperature Source Oral Pulse Rate 91 H 62 Pulse Rate [Right Brachial] 92 H Respiratory Rate 16 Blood Pressure 147/113 H 94/67 L Blood Pressure [Right Arm] 147/113 H Blood Pressure Mean [Right Arm] 124 Blood Pressure Source Blood Pressure Source [Right Arm] Automatic Cuff Blood Pressure Position Blood Pressure Position [Right Arm] Sitting 02 Sat by Pulse Oximetry 97 98 100 Oxygen Delivery Method Room Air 03/07/25 16:01 03/07/25 17:00 03/07/25 17:30 Temperature Temperature Source Pulse Rate 66 69 88 Pulse Rate [Right Brachial] Respiratory Rate 25 H 13 Blood Pressure 123/77 150/99 H 130/96 H Blood Pressure [Right Arm] Blood Pressure Mean [Right Arm] Blood Pressure Source Blood Pressure Source [Right Arm] Blood Pressure Position Blood Pressure Position [Right Arm] 02 Sat by Pulse Oximetry 99 98 95 Oxygen Delivery Method 03/07/25 18:00 03/07/25 18:01 03/07/25 18:40 Temperature 97.9 F Temperature Source Oral Pulse Rate 74 88 78 Pulse Rate [Right Brachial] Respiratory Rate 18 Blood Pressure 146/82 H 139/88 139/88 Blood Pressure [Right Arm] Blood Pressure Mean [Right Arm] Blood Pressure Source Automatic Cuff Blood Pressure Source [Right Arm] Blood Pressure Position Sitting Blood Pressure Position [Right Arm] 02 Sat by Pulse Oximetry 94 L 96 Oxygen Delivery Method Room Air Lab Data Lab results reviewed: Yes I reviewed the patient's lab results. Lab Results 03/07/25 15:55: WBC 7.9, RBC 5.32, Hgb 16.4, Hct 46.1, MCV 86.7, MCH 30.8, MCHC 35.6 H, RDW 12.6, Plt Count 261, MPV 10.2, Neut % (Auto) 63.2, Lymph % (Auto) 27.2, [place] % (Auto) 8.4, Eos % (Auto) 0.3, Baso % (Auto) 0.6, Neut # (Auto) 5.0, Lymph # (Auto) 2.1, [place] # (Auto) 0.7, Eos # (Auto) 0.0, Baso # (Auto) 0.1, PT 11.5, INR 1.04, Sodium 142, Potassium 3.9, Chloride 102, Carbon Dioxide 28, Anion Gap 15.9 H, BUN 12, Creatinine 1.20, Estimated Creat Clear 93, Estimated GFR 65, Est GFR ( Amer) 79, Glucose 107 H, Calcium 9.0, Magnesium 2.1, Total Bilirubin 0.8, AST 35, ALT 44, Alkaline Phosphatase 79, Troponin I < 0.01, Total Protein 7.8, Albumin 4.7, Globulin 3.1, Albumin/Globulin Ratio 1.5 03/07/25 15:55 03/07/25 15:55 Orders (Tests/Meds): ED MEDICATIONS Discontinued Medications Generic Name Dose Route Start Last Admin Trade Name Freq PRN Reason Stop Dose Admin Acetaminophen 1,000 mg 03/07/25 16:03 03/07/25 16:12 Acetaminophen 1,000mg/100ml Vial IV 03/07/25 16:04 1,000 mg ONCE ONE Administration Diphenhydramine HCl 12.5 mg 03/07/25 16:59 03/07/25 17:23 Diphenhydramine 50mg/Ml Vial IV 03/07/25 17:00 12.5 mg ONCE ONE Administration Sodium Chloride 1,000 mls @ 999 mls/hr 03/07/25 16:03 03/07/25 17:23 Sod Chlor 0.9% 1000ml Bag IV 03/07/25 17:03 Infused .Q1H1M ONE Infusion Magnesium Sulfate 2 gm in 50 mls @ 50 mls/hr 03/07/25 16:03 03/07/25 17:24 Magnesium Sulfate 2gm/50ml Premix IV 03/07/25 17:02 Infused ONCE ONE Infusion Iopamidol 75 ml 03/07/25 16:27 03/07/25 16:28 Iopamidol-370 (76%);100ml Bottle IV 03/07/25 16:28 75 ml ONCE ONE Administration Ketorolac Tromethamine 30 mg 03/07/25 16:59 03/07/25 17:22 Ketorolac 30mg/Ml Vial IV 03/07/25 17:00 30 mg ONCE ONE Administration Ondansetron HCl 4 mg 03/07/25 16:04 03/07/25 16:12 Ondansetron 4mg/2ml Vial IV 03/07/25 16:05 4 mg ONCE ONE Administration Prochlorperazine Edisylate 10 mg 03/07/25 16:59 03/07/25 17:23 Prochlorperazine 10mg/2ml Vial IV 03/07/25 17:00 10 mg ONCE ONE Administration Sodium Chloride 50 ml 03/07/25 16:27 03/07/25 16:28 0.9 % Sodium Chloride 50 Ml Vial IV 03/07/25 16:28 50 ml ONCE ONE Administration Sodium Chloride 10 ml 03/07/25 16:27 03/07/25 16:28 Sodium Chloride 0.9% 10ml Syr (Rad Only) IV 04/06/25 16:26 10 ml NEEDED PRN Administration Maintain IV Site ORDERS Category Date Time Status CT angio head Stat Cat Scan 03/07/25 16:[address] angio neck Stat Cat Scan 03/07/25 16:[address] head/brain wo con Stat Cat Scan 03/07/25 16:00 Completed CBC w/Auto Diff [Complete Blood Count Auto Diff] Stat Lab 03/07/25 15:55 Completed CMP [Comprehensive Metabolic Panel] Stat Lab 03/07/25 15:55 Completed MAG [Magnesium] Stat Lab 03/07/25 15:55 Completed Prothrombin Time INR Stat Lab 03/07/25 15:55 Completed Trop I [Troponin I] Stat Lab 03/07/25 15:55 Completed Medical Decision Narrative: Patient is a 44-year-old male with no significant past medical history who presented to the emergency department with a headache. On arrival, patient was hemodynamically stable with unremarkable vital signs. Differential includes but not limited to: Intracranial process, subarachnoid hemorrhage, tension headache, migraine headache, hypertensive emergency, amongst others. Patient's labs were reviewed and interpreted by myself: CBC showed no leukocytosis, hemoglobin was stable. INR was normal. CMP was unremarkable. Troponin was normal. EKG was reviewed and interpreted by myself and showed normal sinus rhythm without acute ST or T wave changes concerning for ischemia. CT head, CTA head and neck were obtained which showed no acute pathology. Patient had a vagal response when getting in his IV which did fix his blood pressure. Patient continued to have a headache therefore patient was given medications for migraine. For symptomatic and intermittent emergency department, patient had resolution of his headache. I recommended the patient continue taking his blood pressure at home if patient continued to had to have high blood pressure over a week patient should follow-up with his primary care provider for further management. Patient was otherwise discharged home in stable condition return precautions were discussed. Critical Care Critical Care Time Critical Care Time: No
--- NOTE | 2025-03-07 16:00 | CT_ITS ---
PROCEDURE INFORMATION: Exam: CT Head Without Contrast Exam date and time: 03/07/2025 4:21 PM Age: 44 years old Clinical indication: Pain; Headache; Additional info: 8/ head, acute onset TECHNIQUE: Imaging protocol: Computed tomography of the head without contrast. Radiation optimization: All CT scans at this facility use at least one of these dose optimization techniques: automated exposure control; mA and/or kV adjustment per patient size (includes targeted exams where dose is matched to clinical indication); or iterative reconstruction. COMPARISON: CT HEAD/BRAIN WO CON 12/11/2022 12:03 AM FINDINGS: Brain: No evidence of acute parenchymal hemorrhage, extra-axial collection or local regional mass effect. There is a 1.7 cm left sylvian fissure arachnoid cyst Cerebral ventricles: The ventricles, sulci and cisterns are normal in size and configuration. No hydrocephalus or midline structure shift Pituitary gland and sella: Sellar/parasellar structures, orbits and craniocervical junction are unremarkable Paranasal sinuses: Visualized sinuses are unremarkable. No fluid levels. Mastoid air cells: Visualized mastoid air cells are well aerated. Bones: No calvarial fracture Soft tissues: Unremarkable. IMPRESSION: No acute intracranial abnormality. No calvarial fracture.
--- NOTE | 2025-03-07 16:00 | CT_ITS ---
PROCEDURE INFORMATION: Exam: CTA Head With Contrast, Arteriography Exam date and time: 03/07/2025 4:24 PM Age: 44 years old Clinical indication: Pain; Headache; Additional info: 8/10 head, acute onset 3 days ago TECHNIQUE: Imaging protocol: Computed tomographic angiography of the head with contrast. Exam focused on the arteries. 3D rendering (Not supervised by radiologist): MIP and/or 3D reconstructed images were created by the technologist. Radiation optimization: All CT scans at this facility use at least one of these dose optimization techniques: automated exposure control; mA and/or kV adjustment per patient size (includes targeted exams where dose is matched to clinical indication); or iterative reconstruction. Contrast material: ISO 370; Contrast volume: 80 ml; Contrast route: INTRAVENOUS (IV); COMPARISON: CT HEAD/BRAIN WO CON 03/07/2025 4:21 PM FINDINGS: ANTERIOR CIRCULATION: Right internal carotid artery: Intracranial segment is patent with no significant stenosis. No aneurysm. Right middle cerebral artery: No occlusion or significant stenosis. No aneurysm. Right anterior cerebral artery: No occlusion or significant stenosis. No aneurysm. Left internal carotid artery: Intracranial segment is patent with no significant stenosis. No aneurysm. Left middle cerebral artery: No occlusion or significant stenosis. No aneurysm. Left anterior cerebral artery: No occlusion or significant stenosis. No aneurysm. POSTERIOR CIRCULATION: Right vertebral artery: No occlusion or significant stenosis. No aneurysm. Left vertebral artery: No occlusion or significant stenosis. No aneurysm. Basilar artery: No occlusion or significant stenosis. No aneurysm. Right posterior cerebral artery: No occlusion or significant stenosis. No aneurysm. Left posterior cerebral artery: No occlusion or significant stenosis. No aneurysm. Brain: No definite mass, mass effect, or midline shift. Cerebral ventricles: No ventriculomegaly. Bones/joints: Unremarkable. No acute fracture. Soft tissues: Unremarkable. IMPRESSION: No large vessel stenosis or occlusion.
--- NOTE | 2025-03-07 16:01 | CT_ITS ---
PROCEDURE INFORMATION: Exam: CTA Neck Without And With Contrast Exam date and time: 03/07/2025 4:24 PM Age: 44 years old Clinical indication: Pain; Headache; Additional info: 8/10 head, acute onset 3 days ago TECHNIQUE: Imaging protocol: Computed tomographic angiography of the neck without and with contrast. Exam focused on the cervical segments of the vasculature. 3D rendering (Not supervised by radiologist): MIP and/or 3D reconstructed images were created by the technologist. Radiation optimization: All CT scans at this facility use at least one of these dose optimization techniques: automated exposure control; mA and/or kV adjustment per patient size (includes targeted exams where dose is matched to clinical indication); or iterative reconstruction. Contrast material: ISOVUE; Contrast volume: 80 ml; Contrast route: INTRAVENOUS (IV); COMPARISON: CT HEAD/BRAIN WO CON 03/07/2025 4:21 PM FINDINGS: Right common carotid artery: No stenosis. No dissection or occlusion. Right internal carotid artery: No stenosis of the extracranial segment. No dissection or occlusion. Right external carotid artery: No occlusion or stenosis of the origin. Left common carotid artery: No stenosis. No dissection or occlusion. Left internal carotid artery: No stenosis of the extracranial segment. No dissection or occlusion. Left external carotid artery: No occlusion or stenosis of the origin. Right vertebral artery: No stenosis. No dissection or occlusion. Left vertebral artery: No stenosis. No dissection or occlusion. Soft tissues: Normal. No significant soft tissue swelling. Bones/joints: No acute fracture. IMPRESSION: No stenosis or occlusion. REFERENCES: NASCET CRITERIA. The degree of stenosis in the cervical segment of the internal carotid artery is based on NASCET criteria. Normal is no stenosis. Mild is less than 50% stenosis. Moderate is 50-69% stenosis. Severe is 70% to 99% stenosis. Total occlusion is no detectable patent lumen.
[2025-03-07 16:07] LABS: Hematocrit 46.1 % (42.0-52.0); Hemoglobin 16.4 g/dL (14.1-18.0); Immature Granulocytes % 0.3 %; Mean Corpuscular HGB Conc 35.6 g/dL (31.8-35.4); Mean Corpuscular Hemoglobin 30.8 pg (27.0-31.2); Mean Corpuscular Volume 86.7 fl (80-94); Nucleated Red Blood Cells % 0 %; Platelet Count 261 K/mm3 (142-424); Red Blood Count 5.32 M/mm3 (4.60-6.20); Red Cell Distribution Width-SD 39.3 fL; White Blood Count 7.9 K/mm3 (4.8-10.8)
[2025-03-07] MEDS: 0.9 % SODIUM CHLORIDE 1000ML 1,000 ML 999 ML IV (16:10)
[2025-03-07] MEDS: MAGNESIUM SULFATE IN WATER 2 GM/50 ML PIGGYBACK IV (16:11)
[2025-03-07 16:12] LABS: Albumin Level 4.7 g/dl (3.5-5.0); Chloride 102 mmol/L (98-107)
[2025-03-07] MEDS: ONDANSETRON 4MG/2ML VIAL 4 MG IV (16:12)
[2025-03-07] MEDS: ACETAMINOPHEN 1,000MG/100ML VIAL 1000 MG IV (16:12)
[2025-03-07 16:13] LABS: Potassium 3.9 mmoL/L (3.5-5.1); Sodium 142 mmol/L (136-145)
[2025-03-07 16:15] LABS: Alanine Aminotransferase 44 U/L (12-78); Alkaline Phosphatase 79 U/L (38-126); Anion Gap 15.9 mEq/L (5-15); Aspartate Amino Transferase 35 U/L (17-59); Bilirubin,Total 0.8 mg/dl (0.2-1.3); Blood Urea Nitrogen 12 mg/dl (9-20); Carbon Dioxide 28 mmol/L (22.0-30.0); Creatinine Clearance Estimated 93 mL/min (50-200); Creatinine,Serum 1.20 mg/dl (0.66-1.25); Estimated Glomerular Filt Rate 65 ml/min (>60); GFR (African American) 79 ML/MIN (>60)
[2025-03-07 16:16] LABS: Albumin/Globulin Ratio 1.5 (1.1-1.8); Calcium 9.0 mg/dl (8.4-10.2); Globulin 3.1 g/dL (1.3-3.2); Glucose 107 mg/dl (74-100); Magnesium 2.1 mg/dl (1.6-2.3); Total Protein,Serum 7.8 g/dl (6.3-8.2)
[2025-03-07 16:17] LABS: INR 1.04 (0.9-1.1); Prothrombin Time 11.5 seconds (10.1-12.5)
[2025-03-07 16:28] LABS: Troponin I < 0.01 ng/ml (0.00-0.034)
[2025-03-07] MEDS: IOPAMIDOL-370 (76%);100ML BOTTLE 75 ML IV (16:28)
[2025-03-07] MEDS: 0.9 % SODIUM CHLORIDE 50 ML VIAL IV (16:28)
[2025-03-07] MEDS: SODIUM CHLORIDE 0.9% 10ML SYR (RAD ONLY) 10 ML IV (16:28)
[2025-03-07] MEDS: KETOROLAC 30MG/ML VIAL 30 MG IV (17:22)
[2025-03-07] MEDS: PROCHLORPERAZINE 10MG/2ML VIAL 10 MG IV (17:23)
== END 2025-03-07 18:42 | disposition home or self-care (01) ==
PROVIDERS: Emergency Provider Student in an Organized Health Care Education/Training Program; PCP Family Medicine
DX: G43.909 Migraine, unspecified, not intractable, without status migrainosus (principal); R03.0 Elevated blood-pressure reading, without diagnosis of hypertension; Z88.8 Allergy status to other drugs, medicaments and biological substances; F17.290 Nicotine dependence, other tobacco product, uncomplicated
CPT/HCPCS: 70450; 70496; 70498; 80053; 83735; 84484; 85025; 85610; 93005; 96361; 96365; 96375; 99285; J0131; J0780; J1200; J1885; J2405; J3475; J7030; Q9967